=== PATIENT | male | born 1965 | race Caucasian/White ===

== ENCOUNTER 2021-04-08 12:58 | Emergency (ER) | payer SELFPAY ==
--- NOTE | ~2021-04-08 | CT_ITS ---
EXAMINATION: CT HEAD WITHOUT CONTRAST CT FACIAL BONES WITHOUT CONTRAST CT CERVICAL SPINE WITHOUT CONTRAST CLINICAL INFORMATION: Seizures. Trauma to the head and face. COMPARISON: CT head 01/09/2016. CT orbits 07/12/2010. TECHNIQUE: Multidetector volumetric CT imaging of the head, facial bones and cervical spine was acquired without intravenous contrast administration. Postprocessing is performed at a dedicated workstation. Multiplanar reformatted images are submitted. This CT scan was performed using dose optimization techniques as appropriate to a performed exam including the following: *Automated exposure control *Adjustment of mA and/or kV according to patient size (this includes techniques or standardized protocols for targeted exams were dose is matched to indication/reason for exam; i.e. extremities or head) *Use of iterative reconstruction technique DLP: 1352 mGy-cm FINDINGS: CT HEAD AND FACIAL BONES: There is mild global volume loss with proportionate dilatation of the ventricles and cortical sulci. There is no evidence of acute intracranial hemorrhage, midline shift or mass effect. Cullen to white matter differentiation is well preserved. No abnormal extra-axial fluid collection. No abnormal parenchymal attenuation is noted. Osseous calvarium is intact. No evidence of significant calvarial soft tissue swelling or hematoma. Mild soft tissue swelling is noted over the anterior frontal region. Temporomandibular joint alignments are maintained. Minimally displaced fracture of the right nasal bone anteriorly. Minimal mucosal thickening in the ethmoid air cells. Remainder of the paranasal sinuses are clear. Mastoid air cells and middle ear cavities are well aerated. Cerumen is noted in the right external auditory canal. The zygomatic arches are intact. Lamina papyracea are intact. Orbital rims are intact. The globes are unremarkable. Retrobulbar fat is clear bilaterally. CT CERVICAL SPINE: The vertebral body heights are maintained. Atlantoaxial and atlantooccipital alignments are maintained. Multilevel bilateral facet arthropathy is seen, left greater than right. There is moderate narrowing of the C5-C6 and C6-C7 disc spaces. Mild narrowing of the C3-C4 and C4-C5 disc spaces. Marginal small endplate osteophytes are noted from C4 to C7. The posterior elements are intact and in normal alignment. [id number] bilateral neural foraminal narrowing is noted at C5-C6. Minimal anterior subluxation of C4 over C5 is likely degenerative. No evidence of prevertebral soft tissue swelling. Thyroid gland and lung apices are unremarkable. CT/CT cervical spine wo con IMPRESSION: 1. No evidence of acute intracranial abnormality. 2. Minimally displaced right nasal bone fracture. No evidence of fracture of the osseous calvarium. 3. No evidence of acute fracture or traumatic subluxation in the cervical spine. Cervical spondylosis.
[2021-04-08 13:08] VITALS: BP 152/98; BP 171/93; PULSE 111; PULSE 84; RESP 22; TEMP 37.1; O2SAT 95; O2SAT 96; BMI 22.4
--- NOTE | 2021-04-08 13:32 | ED_ITS ---
HPI - Seizure General Chief Complaint: Seizure Stated Complaint: seizure Time Seen by Provider: 04/08/21 12:59 Source: patient Mode of arrival: EMS Limitations: no limitations History of Present Illness HPI Narrative: 55-year-old male past medical history significant for alcohol abuse disorder w/ previous alcohol withdraw seizures brought in by ambulance for an alcohol withdrawal seizure just prior to arrival. According to EMS when they arrived he was postictal, he was unable to answer questions, and it appeared as though he fell and hit his head. Patient states that he has been trying to stop drinking alcohol, he usually drinks 4 large beers each night. He states his last drink was 2 days ago. He states that since his last drink he has been feeling shaky, and on well. He states he has had alcohol withdrawal seizures in the past, but they have never required hospital admission. At this time he also complains of a mild headache, and nausea. He states that this seizure was likely witnessed by his roommates, but he has not spoken to them, and he does not know how long he was seizing for. Patient denies dizziness, chest pain, shortness of breath, changes in vision, fevers, chills, vomiting, abdominal pain, diarrhea, bladder/bowel incontinence, neck pain. MD complaint: seizure Onset (ago): minute(s) (45) Description of Episode: loss of consciousness Witnessed: Yes - by Bystander (roomate) Trauma: Yes Seizure History: Yes Place: Home Possible Precipitating Event: alcohol withdrawal Associated symptoms: malaise and other (headache, nausea) Treatments prior to arrival: none Related Data Previous Rx's Medication Instructions Recorded chlordiazepoxide HCl 25 mg capsule 25 mg PO Q6H PRN #10 cap 04/08/21 Allergies Allergy/AdvReac Type Severity Reaction Status Date / Time Sulfa (Sulfonamide Allergy Unknown NOT Unverified 02/24/20 14:50 Antibiotics) APPLICABLE [SULFA (SULFONAMIDE ANTIBIOTICS)] Review of Systems Review of Systems: Yes all other systems are reviewed and are negative Constitutional: Constitutional: Reports no additional constitutional complaints, Denies body ache(s), Denies chills, Denies fever(s), Reports headache(s) and Denies weakness Eyes: Eyes: Reports no additional eye complaints and Denies change in vision ENT: Reports system reviewed and no additional complaints, except as documented, Denies dizziness, Reports headache(s), Denies nasal congestion, Denies nasal discharge and Denies neck pain Cardiovascular: Cardiovascular: Reports no additional cardiovascular complaints, Denies chest pain, Denies leg edema and Denies dyspnea Respiratory: Respiratory: Reports no additional respiratory complaints, Denies cough and Denies dyspnea Gastrointestinal: Gastrointestinal: Reports no additional gastrointestinal complaints, Denies abdominal pain, Denies diarrhea, Reports nausea and Denies vomiting Genitourinary: Genitourinary: Denies urinary incontinence Musculoskeletal: Musculoskeletal: Reports no additional musculoskeletal complaints, Denies back pain, Denies arthralgias, Denies joint swelling, Denies neck pain, Denies numbness and Denies tingling Integumentary/Breasts: Skin/Breast: Reports system reviewed and no additional complaints, except as docu, Reports bleeding lesions and Denies rash Neurologic: Reports system reviewed and no additional complaints, except as documented, Denies Abnormal speech present, Denies dizziness, Reports headache(s), Denies numbness, Denies tingling and Denies weakness PMF Past Medical History Attestation statement: The following information was validated with the patient. Source: old records reviewed and nursing notes reviewed Medical History Abuse, drug or alcohol Social History Social History Alcohol intake: former Patient Tobacco Use Status: Never used Tobacco Use of substances other than those prescribed or required for medical reasons: No Advance Directives: No Advance Directives Information Provided: No Physical Exam Vital Signs: Vital Signs: Last Vital Signs Temp 99.4 F 04/08/21 16:39 Pulse 77 04/08/21 16:39 Resp 18 04/08/21 16:39 BP 182/101 H 04/08/21 16:39 Pulse Ox 93 04/08/21 16:39 Body Mass Index 22.4 Const: General: cooperative, healthy appearing, comfortable and no acute distress Orientation/consciousness: patient oriented x3 Limitations: no limitations HENMT: Head: Yes normal to inspection and Yes other (no step offs or deformities. ) Ears: hearing grossly normal bilaterally General nose exam: Normal external nose present Face and sinus: Yes normal facial exam Mouth: Normal oral and palatal mucosa present Throat: Yes posterior oropharynx normal Eyes: General: appearance normal, both eyes and all related structures Pupils: Equal, round and reactive pupils present Neck: Neck: Yes normal visual inspection Chest: Chest palpation & inspection: normal inspection of the chest Resp: Effort & Inspection: normal respiratory effort Auscultation: clear to auscultation bilaterally Cardio: Rate: regular rate Rhythm: regular rhythm Peripheral pulses: Peripheral pulses 2+ throughout GI: Inspection: Yes normal to inspection Palpation (GI): Soft to palpation and nontender Auscultation: normal bowel sounds Back/Spine/Pelvis: Thoracic/Lumbar Spine: thoracic and lumbar spine normal to inspection Skin: Other: There are abrasions noted to the left side of the forehead/baptism region. There is also small bleeding laceration on the nose <1 cm. There is also a small laceration and is bleeding overlying the left maxillary bone measuring less than 1 cm. General skin exam: rashes and/or lesions noted Neuro: Other: A resting tremor is noted to bilateral upper extremities. Tongue fasciculations are noted. No asterixis noted. General: patient oriented x3, no focal motor deficits and normal sensation to monofilament Cranial nerves: Yes Equal, round and reactive pupils present Cognition (Neuro): normal cognition Speech: No Abnormal speech present Gait exam (Neuro): Normal gait present Motor exam (neuro): 5/5 motor strength present throughout Sensory Exam: Normal double simultaneous stimulation for sensation Extrem: General: Yes normal to inspection Course Reevaluation(s) Reevaluation #1: Labs show no acute infection, elevated transaminases in a 2-1 pattern likely secondary to alcohol use disorder, Lactic acid 3.3, second liter of fluids will be given. CK 72. Utox negative, Ethanol <10. CT shows no evidence of intracranial hemorrhage, minimally displaced right nasal bone fracture. No acute fracture or subluxation in the cervical spine. Time: 14:19 Reevaluation #2: Spoke to the patient a bowel attending detox, however he states he would like to take care of this on his own once he gets discharged, he states he does not have money or insurance right now for a detox program. Patient ates that he has been sober in the past, he used AA. He plans to start going back to AA after hospital discharge, he states he no longer wants to drink, he states he knows plenty of people within the program, so he feels like he has plenty of support at home. At this time his resting tremors have improved after the administration of Ativan IV. Patient is no longer nauseous at this time. He does not report a headache at this time Time: 14:32 Reevaluation #3: Another dose of IV Ativan has been ordered. Patient has been e ducated that if he leaves the hospital, without detox/ admisssion for alcohol withdraw he is leaving against medical advice. He states he has a safe ride home, he states a friend will come and get him and that he has no money or insurance right now and dosent want to be admitted. Repeat lactic acid is pending at this time, if lactic acid has improved after 2 L of fluids, he will sign out AMA. He states he will follow up with AA. He states he has used Librium in the past, and is been very helpful. Librium has been sent to his pharmacy. He has been educated that he should not drink while taking Librium, this can cause respiratory depression, and in turn car as aspiration pneumonia. He understands this, and states he is not planning to drink. He will sign out AMA, has been given return percautions. Time: 16:47 Additional Reevaluation(s): Repeat lactic 1.3 improved after 2L of NS. Patient is calling a friend for a ride home. Refusing to be admitted. He is alert and oriented x 3. Will sign AMA paper work MDM - Seizure MDM Narrative Medical decision making narrative: [id number] 55-year-old male with past medical history of alcohol use disorder with previous alcohol withdrawal seizures presents to the emergency department via EMS for an unwitnessed seizure, the patient likely fell and hit his head. Patient states that usually drinks 4 large beers a night, and has been drinking for years. He states recently he has been trying to stop drinking his last drink was 2 days ago. He states for the past 2 days he has been feeling unwell, and shaky. His previous withdraws have never required hospitalizations. At this time patient is unsure if he would like detox. CIWA score of 8 Upon physical examination patient is resting comfortably on the stretcher, he is in no distress. Able to answer questions appropriately alert and oriented x3. Lungs are clear to auscultation, S1-S2 appreciated free of murmurs. No focal neuro deficits noted. 5/5 strength upper and lower extremities. There is a resting tremor to bilateral upper extremities. No asterixis noted. Tongue fasciculations are noted. There are evident abrasions to the left side of the forehead, and baptism area. There is a small laceration measuring less than 1 cm overlying the left maxillary bone. There is also a laceration to the left side of the nose, measuring less than 1 cm p.o. readmit bleeding from both of these laceration is well controlled. Abdomen is soft nontender nondistended. Pupils are equal round reactive to light. No step-offs or deformities are noted to skull Plan at this time is to obtain basic labs, drug screen, EtOH, lactic, CK, magnesium, liver, salicylates, urine, CT of the head/brain, facial bones, and c ervical spine. Seizure precautions are in place at this time. Patient will be given Ativan 1 mg IV, Zofran and will be hydrated with fluids. Will continue to closely monitor this patient. Medical Records Attestation: I reviewed the patient's medical records. Lab Data Attestation: I reviewed the patient's lab results. Result diagrams: 04/08/21 13:49 04/08/21 13:49 Labs: Lab Results 04/08/21 04/08/21 04/08/21 Range/Units 13:49 13:49 13:49 WBC 7.8 (4.8-10.8) X10*3/uL RBC 4.42 L (4.60-5.80) X10*6/uL Hgb 15.7 (14.0-18.0) g/dl Hct 45.1 (42.0-52.0) % MCV 102.0 H (80.0-98.0) fL MCH 35.5 H (27.0-33.0) pg MCHC 34.8 (31.0-36.0) g/dl RDW 13.1 (11.0-16.0) % Plt Count 142 L (160-400) X10*3/uL MPV 10.9 (9.4-12.4) fL Immature Gran % (Auto) 0.8 H (0.0-0.4) % Neut % (Auto) 81.6 H (45-73) % Lymph % (Auto) 8.2 L (20-40) % [place] % (Auto) 8.5 (2-11) % Eos % (Auto) 0.3 (0-4) % Baso % (Auto) 0.6 (0-2) % Lymph # (Auto) 0.6 L (1.2-4.9) X10*3/uL [place] # (Auto) 0.7 (0.1-1.2) X10*3/uL Eos # (Auto) 0.0 (0.0-0.4) X10*3/uL Baso # (Auto) 0.1 (0.0-0.2) X10*3/uL Abs Immat Gran (auto) 0.06 H (0.00-0.03) X10*3/uL Absolute Neuts (auto) 6.40 (2.0-8.3) x10*3/uL Absolute Nucleated RBC 0.020 H (0.0-0.012) X10*3/uL Nucleated RBC % (auto) 0.3 H (0.0-0.2) /100WBC Sodium 138 (135-145) mmol/L Potassium 3.9 (3.3-5.1) mmol/L Chloride 99 (96-108) mmol/L Carbon Dioxide 25 (22-29) mmol/L Anion Gap 18 (12-20) BUN 7 L (9-16) mg/dL Creatinine 0.76 (0.5-1.4) mg/dL Estim Creat Clear Calc 95.1 Estimated GFR > 60 Random Glucose 177 H (60-115) mg/dL Lactic Acid (0.5-2.0) mmol/L Lactic Acid Fup @ 2Hr (0.5-2.0) mmol/L Calcium 8.8 (8.4-10.2) mg/dL Magnesium 2.2 (1.6-2.6) mg/dL Total Bilirubin 0.7 (0.0-1.0) mg/dL Direct Bilirubin 0.3 (0.0-0.5) mg/dL AST 129 H (5-37) U/L ALT 79 H (0-40) U/L Alkaline Phosphatase 94 (39-117) U/L Total Creatine Kinase 72 (38-174) U/L Total Protein 7.0 (6.5-8.0) g/dL Albumin 3.9 (3.5-5.0) g/dL Salicylates < 5.0 L (15-30) mg/dL Ethyl Alcohol < 10 mg/dL 04/08/21 04/08/21 Range/Units 14:19 16:48 WBC (4.8-10.8) X10*3/uL RBC (4.60-5.80) X10*6/uL Hgb (14.0-18.0) g/dl Hct (42.0-52.0) % MCV (80.0-98.0) fL MCH (27.0-33.0) pg MCHC (31.0-36.0) g/dl RDW (11.0-16.0) % Plt Count (160-400) X10*3/uL MPV (9.4-12.4) fL Immature Gran % (Auto) (0.0-0.4) % Neut % (Auto) (45-73) % Lymph % (Auto) (20-40) % [place] % (Auto) (2-11) % Eos % (Auto) (0-4) % Baso % (Auto) (0-2) % Lymph # (Auto) (1.2-4.9) X10*3/uL [place] # (Auto) (0.1-1.2) X10*3/uL Eos # (Auto) (0.0-0.4) X10*3/uL Baso # (Auto) (0.0-0.2) X10*3/uL Abs Immat Gran (auto) (0.00-0.03) X10*3/uL Absolute Neuts (auto) (2.0-8.3) x10*3/uL Absolute Nucleated RBC (0.0-0.012) X10*3/uL Nucleated RBC % (auto) (0.0-0.2) /100WBC Sodium (135-145) mmol/L Potassium (3.3-5.1) mmol/L Chloride (96-108) mmol/L Carbon Dioxide (22-29) mmol/L Anion Gap (12-20) BUN (9-16) mg/dL Creatinine (0.5-1.4) mg/dL Estim Creat Clear Calc Estimated GFR Random Glucose (60-115) mg/dL Lactic Acid 3.3 H* (0.5-2.0) mmol/L Lactic Acid Fup @ 2Hr 1.3 (0.5-2.0) mmol/L Calcium (8.4-10.2) mg/dL Magnesium (1.6-2.6) mg/dL Total Bilirubin (0.0-1.0) mg/dL Direct Bilirubin (0.0-0.5) mg/dL AST (5-37) U/L ALT (0-40) U/L Alkaline Phosphatase (39-117) U/L Total Creatine Kinase (38-174) U/L Total Protein (6.5-8.0) g/dL Albumin (3.5-5.0) g/dL Salicylates (15-30) mg/dL Ethyl Alcohol mg/dL Imaging Data CT of cervical spine, face, head: Attestation: I personally reviewed and interpreted this imaging study as follows: Radiologist's impression: CT/CT cervical spine wo con IMPRESSION: 1. No evidence of acute intracranial abnormality. 2. Minimally displaced right nasal bone fracture. No evidence of fracture of the osseous calvarium. 3. No evidence of acute fracture or traumatic subluxation in the cervical spine. Cervical spondylosis. Discharge Plan Discharge Clinical Impression: Alcohol withdrawal seizure Qualifiers: Complication of substance-induced condition: uncomplicated Qualified Code(s): F10.230 - Alcohol dependence with withdrawal, uncomplicated Closed fracture nasal bone Qualifiers: Encounter type: initial encounter Qualified Code(s): S02.2XXA - Fracture of nasal bones, initial encounter for closed fracture Patient Disposition: Left Against Medical Advice Instructions: Nasal Fracture (ED), Abuse of Alcohol (ED), Alcohol Withdrawal (ED), Against Medical Advice (ED), Alcohol Use Disorder (ED) Additional Instructions: Today you decided to leave against medical advice Librium has been sent to your pharmacy. Do not drink on this medication it can be very dangerous and cause respiratory depression and possible aspiration pneumonia Follow-up with your primary care provider As discussed it is a good idea to attend AA meetings Return to the emergency department with new or worsening symptoms Prescriptions: New chlordiazepoxide HCl 25 mg capsule 25 mg PO Q6H PRN (Reason: alcohol withdrawal) Qty: 10 RF: 0 Referrals: Physician,Unknown J [Primary Care Provider] - 2 days Stand Alone Forms: Against Medical Advice Interventions: ED Discharge Assessment Last Done: 04/08/21 17:48
[2021-04-08] MEDS: 0.9 % Sodium Chloride 1,000 ML 999 ML IV ×2 (13:42→16:15)
[2021-04-08] MEDS: LORazepam 2 MG/ML VIAL 1 MG IVPUSH ×2 (13:42→16:21)
[2021-04-08] MEDS: ondansetron HCL 4 MG/2 ML VIAL IVPUSH (13:43)
[2021-04-08 13:58] LABS: Basophils Absolute Auto 0.1 X10*3/uL (0.0-0.2); Basophils Percent Auto 0.6 % (0-2); Eosinophils Percent Auto 0.3 % (0-4); Hematocrit 45.1 % (42.0-52.0); Hemoglobin 15.7 g/dl (14.0-18.0); Imm Gran Abs Auto 0.06 X10*3/uL (0.00-0.03); Imm Gran Pct Auto 0.8 % (0.0-0.4); Lymphocytes Absolute Auto 0.6 X10*3/uL (1.2-4.9); Lymphocytes Percent Auto 8.2 % (20-40); MANUAL DIFF FLAG NO; Mean Corpuscular HGB Conc 34.8 g/dl (31.0-36.0); Mean Corpuscular Hemoglobin 35.5 pg (27.0-33.0); Mean Platelet Volume 10.9 fL (9.4-12.4); Monocytes Absolute Auto 0.7 X10*3/uL (0.1-1.2); Monocytes Percent Auto 8.5 % (2-11); NRBC Pct Auto 0.3 /100WBC (0.0-0.2); Neutrophils Percent Auto 81.6 % (45-73); Platelet Count 142 X10*3/uL (160-400); Red Blood Count 4.42 X10*6/uL (4.60-5.80); Red Cell Distribution Width 13.1 % (11.0-16.0); White Blood Count 7.8 X10*3/uL (4.8-10.8)
[2021-04-08 14:15] LABS: Ethanol < 10 mg/dL
[2021-04-08 14:18] LABS: Alanine Aminotransferase 79 U/L (0-40); Albumin Level 3.9 g/dL (3.5-5.0); Alkaline Phosphatase 94 U/L (39-117); Anion Gap 18 (12-20); Aspartate Amino Transferase 129 U/L (5-37); Bilirubin Direct 0.3 mg/dL (0.0-0.5); Bilirubin Total 0.7 mg/dL (0.0-1.0); Blood Urea Nitrogen 7 mg/dL (9-16); Calcium 8.8 mg/dL (8.4-10.2); Carbon Dioxide 25 mmol/L (22-29); Chloride 99 mmol/L (96-108); Creatinine Clr Calc Pharmacy 95.1; Estimated Glomerular Filt Rate > 60; Glucose Random 177 mg/dL (60-115); Magnesium 2.2 mg/dL (1.6-2.6); Potassium 3.9 mmol/L (3.3-5.1); Sodium 138 mmol/L (135-145)
[2021-04-08 14:19] VITALS: BP 166/79; PULSE 92; RESP 18; TEMP 37.1; O2SAT 94
[2021-04-08 14:25] LABS: Salicylate < 5.0 mg/dL (15-30)
[2021-04-08 14:47] LABS: Lactic Acid 3.3 mmol/L (0.5-2.0)
[2021-04-08 16:21] LABS: Reflex Lactate? Lactic Acid Added
[2021-04-08 16:39] VITALS: BP 182/101; PULSE 77; RESP 18; TEMP 37.4; O2SAT 93
[2021-04-08 17:03] LABS: ~Lactic Acid-LAB USE ONLY 1.3 mmol/L (0.5-2.0)
== END 2021-04-08 17:49 | disposition left against medical advice (07) ==
PROVIDERS: Nurse Practitioner Family; Emergency Provider Emergency Medicine
DX: F10.230 Alcohol dependence with withdrawal, uncomplicated (principal); Y90.0 Blood alcohol level of less than 20 mg/100 ml; S02.2XXA Fracture of nasal bones, initial encounter for closed fracture; W18.30XA Fall on same level, unspecified, initial encounter; Y93.9 Activity, unspecified; Y92.9 Unspecified place or not applicable; Y99.9 Unspecified external cause status
CPT/HCPCS: 36415; 70450; 70486; 72125; 80048; 80076; 80179; 82077; 82550; 83605; 83735; 85025; 96361; 96374; 96375; 96376; 99285; J2060; J2405

== ENCOUNTER 2021-05-22 08:17 | Emergency (ER) | payer OTHER, SELFPAY ==
--- NOTE | ~2021-05-22 | XR_ITS ---
EXAMINATION: XR CHEST CLINICAL INFORMATION: Cough COMPARISON: None TECHNIQUE: Upright PA view of the chest was obtained. FINDINGS: Patient slightly rotated. The lungs are clear. There is no pneumothorax, airspace opacities, or effusion. The costophrenic sulci are clear. The heart is normal in size. The vascularity is normal. The hilar and mediastinal contours are normal. There are mild degenerative changes thoracic spine. Old healed fracture noted right posterior lateral 7th rib. XR/XR chest 1V IMPRESSION: Lungs clear.
[2021-05-22 08:38] VITALS: BP 152/96; PULSE 89; RESP 18; TEMP 36.8; O2SAT 97; BMI 22.4
--- NOTE | 2021-05-22 08:59 | ED.URI ---
HPI - URI/Sore Throat General Chief Complaint: Upper Respiratory Symptoms Stated Complaint: body aches Time Seen by Provider: 05/22/21 08:54 Source: patient Mode of arrival: ambulatory Limitations: no limitations History of Present Illness HPI Narrative: 55 y/o male presenting to the ER with diffuse body aches and a dry cough that started yesterday. He states he woke up yesterday with all of his joints and muscles hurting. He has a dry cough but no shortness of breath or chest pain. He is not vaccinated for COVID-19. He denies any fevers or chills. He is tired and his main complaint is his body aches. He has no known sick contacts or known COVID-19 exposures. He denies any rashes. MD elicited complaint: cough and other (body aches) Onset (ago): day(s) (1) Consistency: constant Severity: moderate Able to tolerate fluids by mouth: Yes Exacerbating factors: exertion Relieving factors: rest Associated symptoms: myalgias, headache and cough Treatments prior to arrival: none Related Data Previous Rx's Medication Instructions Recorded chlordiazepoxide HCl 25 mg capsule 25 mg PO Q6H PRN #10 cap 04/08/21 Allergies Allergy/AdvReac Type Severity Reaction Status Date / Time Sulfa (Sulfonamide Allergy Unknown NOT Unverified 02/24/20 14:50 Antibiotics) APPLICABLE [SULFA (SULFONAMIDE ANTIBIOTICS)] Review of Systems Review of Systems: Constitutional: No Fever, No Chills ENT/Mouth: No sore throat, No Rhinorrhea, No Swallowing Difficulty Cardiovascular: No Chest Pain, No SOB, No Orthopnea, No Edema Respiratory: + Cough, No Sputum, No Wheezing, No dyspnea Gastrointestinal: No Nausea, No Vomiting, No Diarrhea, No abdominal Pain Genitourinary: No Dysuria, No Urinary Frequency, No Hematuria Musculoskeletal: + joint pain, + Myalgias Skin: No Skin Lesions, No rash Neuro: No Weakness, No Numbness, No Dizziness, No Headache Psych: No Anxiety/Panic, No Depression Heme/Lymph: No Bruising, No Lymphadenopathy PMFSH Past Medical History Medical History Abuse, drug or alcohol Social History Social History Alcohol intake: former Patient Tobacco Use Status: Never used Tobacco Advance Directives: No Advance Directives Information Provided: No Physical Exam Vital Signs: Vital Signs: Last Vital Signs Temp 98.2 F 05/22/21 08:38 Pulse 89 05/22/21 08:38 Resp 18 05/22/21 08:38 BP 152/96 H 05/22/21 08:38 Pulse Ox 97 05/22/21 08:38 BMI result Body Mass Index 22.4 Appearance: Alert. Oriented X3. No acute distress. Eyes: Pupils equal, round and reactive to light. ENT: Pharynx normal. Neck: Normal inspection. Neck supple. CVS: Normal heart rate and rhythm. Pulses normal. Respiratory: No respiratory distress. Breath sounds normal. Abdomen: Soft and nontender. +BS x4 Skin: Skin warm and dry. Normal skin color. Normal skin turgor. No rashes. Extremities: No lower extremity edema. No calf tenderness Neuro: Oriented X 3. Grossly normal, nonfocal Course Course Course Narrative: 55 y/o male presenting to the ER with body aches and a dry cough that started yesterday. Afebrile with SpO2 97% on room air. Exam is benign. Will get Viral PCR and CXR. Reevaluation(s) Reevaluation #1: Viral PCR is negative and chest x-ray is clear. His symptoms most likely viral in etiology. He has appointment with primary care doctor next week. He is advised to take Tylenol Motrin as needed for his symptoms. He is stable for discharge home with supportive care and outpatient follow-up. MDM - URI/Sore Throat Lab Data Labs: Lab Results 05/22/21 Range/Units 08:57 Influenza Type A (PCR) NEGATIVE (Negative) Influenza Type B (PCR) NEGATIVE (Negative) RSV RNA Qual (PCR) NEGATIVE (Negative) SARS-CoV-2 RNA (RT-PCR) NEGATIVE (Negative) Critical Care Time Critical Care Time Critical Care Time: No Discharge Plan Discharge Clinical Impression: Viral infection Patient Disposition: Home, Self-Care Instructions: Viral Syndrome (ED) Additional Instructions: You tested negative for COVID-19, influenza and RSV. Your chest x-ray was normal. Recommend taking Tylenol alternating with Motrin throughout the day to help with your body aches. Rest and drink plenty of fluids. If your symptoms persist recommend getting retested for COVID-19 given that you are vaccinated. Recommend vaccination for COVID-19 once her feeling better. Follow-up with your doctor as scheduled on the . If you develop new or worsening symptoms call 911 or come back to the ER for further evaluation. Prescriptions: No Action chlordiazepoxide HCl 25 mg capsule 25 mg PO Q6H PRN (Reason: alcohol withdrawal) Qty: 10 RF: 0 Referrals: Irena Jensen MD [Primary Care Provider] - 05/28/21 Stand Alone Forms: Work/School Release
[2021-05-22 10:24] LABS: Influenza A PCR NEGATIVE (Negative); Influenza B PCR NEGATIVE (Negative); Resp Syncy Virus RNA Qual PCR NEGATIVE (Negative); SARS COV2 PCR INHOUSE NEGATIVE (Negative)
== END 2021-05-22 10:52 | disposition home or self-care (01) ==
PROVIDERS: Physician Assistant; Emergency Provider Emergency Medicine; PCP Internal Medicine
DX: B34.9 Viral infection, unspecified (principal); Z20.822 Contact with and (suspected) exposure to COVID-19; M79.10 Myalgia, unspecified site
CPT/HCPCS: 0241U; 36415; 71045; 99283

== ENCOUNTER 2021-07-10 19:50 | Emergency (ER) | payer OTHER, SELFPAY ==
--- NOTE | ~2021-07-10 | CT_ITS ---
EXAMINATION: CT BRAIN AND CT CERVICAL SPINE WITHOUT CONTRAST. CLINICAL INFORMATION: Status post fall/seizure. COMPARISON: CT brain and CT cervical spine 04/08/2021. TECHNIQUE: 5 mm thin axial and reformatted 2 mm thin sagittal and coronal images of brain were obtained. Subsequently axial 3 mm thin and reformatted 2 mm thin sagittal coronal images of cervical spine were obtained. DLP 1425. FINDINGS: BRAIN: There is no acute intra-axial, extra-axial bleed, masses or midline shift. There is no acute infarction evolution. The lateral ventricles are symmetrical in size and configuration without enlargement. There is no edema. The lateral ventricles are enlarged and so other cortical sulci. Bone windows reveal no calvarial abnormality. There is no scalp soft tissue abnormality bilateral paranasal sinuses and mastoid air cells are well-aerated. CERVICAL SPINE: There is mild reversal of cervical lordosis. There is loss of C3-C4, C4-C5, C5-C6, C6-C7 and C7-T1 disc levels with moderate ventral and posterior spondylosis at the lower disc levels. The craniovertebral junction and the C1-C2 alignment is normal. There is no visible acute fracture, dislocation or subluxation seen. There is moderate left C2-C3, C3-C4 and C4-C5 facet joint arthropathy the prevertebral and the paravertebral soft tissues are normal. The airway is widely patent. The lung apices are clear. CT/CT cervical spine wo con IMPRESSION: No acute intracranial process seen. No change from CT brain 04/08/2021. Reversal of cervical lordosis with degenerative disc changes and spondylosis. Similar findings were seen on the previous exam 04/08/2021.
--- NOTE | ~2021-07-10 | CT_ITS ---
EXAMINATION: CT BRAIN AND CT CERVICAL SPINE WITHOUT CONTRAST. CLINICAL INFORMATION: Status post fall/seizure. COMPARISON: CT brain and CT cervical spine 04/08/2021. TECHNIQUE: 5 mm thin axial and reformatted 2 mm thin sagittal and coronal images of brain were obtained. Subsequently axial 3 mm thin and reformatted 2 mm thin sagittal coronal images of cervical spine were obtained. DLP 1425. FINDINGS: BRAIN: There is no acute intra-axial, extra-axial bleed, masses or midline shift. There is no acute infarction evolution. The lateral ventricles are symmetrical in size and configuration without enlargement. There is no edema. The lateral ventricles are enlarged and so other cortical sulci. Bone windows reveal no calvarial abnormality. There is no scalp soft tissue abnormality bilateral paranasal sinuses and mastoid air cells are well-aerated. CERVICAL SPINE: There is mild reversal of cervical lordosis. There is loss of C3-C4, C4-C5, C5-C6, C6-C7 and C7-T1 disc levels with moderate ventral and posterior spondylosis at the lower disc levels. The craniovertebral junction and the C1-C2 alignment is normal. There is no visible acute fracture, dislocation or subluxation seen. There is moderate left C2-C3, C3-C4 and C4-C5 facet joint arthropathy the prevertebral and the paravertebral soft tissues are normal. The airway is widely patent. The lung apices are clear. CT/CT head/brain wo con IMPRESSION: No acute intracranial process seen. No change from CT brain 04/08/2021. Reversal of cervical lordosis with degenerative disc changes and spondylosis. Similar findings were seen on the previous exam 04/08/2021.
[2021-07-10 19:58] VITALS: BP 136/90; BP 149/103; PULSE 110; PULSE 126; RESP 14; TEMP 36.9; O2SAT 96; O2SAT 97; BMI 22.9
--- NOTE | 2021-07-10 20:01 | ECG_ITS ---
Test Reason : Syncope Blood Pressure : / mmHG Vent. Rate : 095 BPM Atrial Rate : 095 BPM P-R Int : 132 ms QRS Dur : 086 ms QT Int : 342 ms P-R-T Axes : 070 052 054 degrees QTc Int : 429 ms Normal sinus rhythm Normal ECG When compared with ECG of 05-APR-2016 15:32, No significant change was found Referred By: Gurwinder Yoon Electronically Signed By:HOLLY HERNANDEZ
[2021-07-10] MEDS: LORazepam 2 MG/ML VIAL 1 MG IVPUSH (20:11)
--- NOTE | 2021-07-10 20:22 | ED_ITS ---
HPI - Seizure General Chief Complaint: Seizure Stated Complaint: fall, EtOH withdrawl Time Seen by Provider: 07/10/21 20:00 Source: patient and EMS Mode of arrival: EMS Limitations: no limitations History of Present Illness HPI Narrative: Preop history of alcohol abuse stop drinking 3 days ago which has done in the past today while in the kitchen sitting suddenly had a seizure witnessed by his friend, seizure lasted for 3- 4 minutes patient does not remember having seizure next thing he found himself was on the ground and EMS around him and passed postictal with superficial abrasion to forehead and right hand no other injuries patient had similar episodes of seizures in the past has not seen any neurologist is not on any antiepileptic Seizure History: Yes Related Data Previous Rx's Medication Instructions Recorded chlordiazepoxide HCl 25 mg capsule 25 mg PO Q6H PRN #10 cap 04/08/21 chlordiazepoxide HCl 25 mg capsule 25 mg PO Q6H PRN #14 cap 07/10/21 Allergies Allergy/AdvReac Type Severity Reaction Status Date / Time Sulfa (Sulfonamide Allergy Unknown NOT Unverified 02/24/20 14:50 Antibiotics) APPLICABLE [SULFA (SULFONAMIDE ANTIBIOTICS)] Review of Systems Verdana 4l Review of Systems: Yes all other systems are reviewed and Verdana 4d are negative [facility] Past Medical History Medical History Abuse, drug or alcohol Social History Social History Alcohol intake: former Patient Tobacco Use Status: Never used Tobacco Advance Directives: No Advance Directives Information Provided: No Physical Exam Verdana 4l Vital Signs: Verdana 4d Verdana 4d Vital Signs: Verdana 4d Verdana 4Bd Last Vital Signs Verdana 4d [place] 4d [place] New 4d Temp 98.5 F 07/10/21 19:58 [place] 4d Pulse 110 H 07/10/21 19:58 [place] 4d Resp 14 07/10/21 19:58 BP 136/90 H 07/10/21 19:58 Pulse Ox 96 07/10/21 19:58 BMI result Body Mass Index 22.9 Appearance: Alert. Oriented X3. No acute distress. Eyes: PERRLA, No Nystagmus HEENT: Pharynx normal. Oral Mucosa moist superficial abrasion left forehead no tongue bite no dental injury Neck: Normal inspection. Neck supple. No midline tenderness good range of movement CVS: Normal heart rate and rhythm. Pulses normal. Respiratory: No respiratory distress. Equal air entry bilateral, no wheezing/rales/rhonchi Abdomen: Soft and nontender. Bowel sounds are present, no mass palpable, Skin: Skin warm and dry. Normal skin color. Normal skin turgor. Extremities: No lower extremity edema. No calf tenderness superficial abrasion right dorsum of the hand Neuro: Oriented X 3. No motor deficit. No sensory deficit.No cerebellar signs , cranial nerves II-XII intact MDM - Seizure MDM Narrative Medical decision making narrative: Patient with alcohol withdrawal seizures with similar history of seizures in the past workup is negative for any metabolically etiology. Will discharge patient home and Librium advised to follow with neurologist/detox Lab Data Attestation: I reviewed the patient's lab results. Result diagrams: 07/10/21 20:59 07/10/21 20:59 Labs: Lab Results 07/10/21 07/10/21 07/10/21 Range/Units 20:59 20:59 20:59 WBC 7.3 (4.8-10.8) X10*3/uL RBC 4.25 L (4.60-5.80) X10*6/uL Hgb 14.3 (14.0-18.0) g/dl Hct 41.3 L (42.0-52.0) % MCV 97.2 (80.0-98.0) fL MCH 33.6 H (27.0-33.0) pg MCHC 34.6 (31.0-36.0) g/dl RDW 12.6 (11.0-16.0) % Plt Count 70 L D (160-400) X10*3/uL MPV 11.0 (9.4-12.4) fL Immature Gran % (Auto) 0.6 H (0.0-0.4) % Neut % (Auto) 76.9 H (45-73) % Lymph % (Auto) 11.7 L (20-40) % [place] % (Auto) 8.8 (2-11) % Eos % (Auto) 1.7 (0-4) % Baso % (Auto) 0.3 (0-2) % Lymph # (Auto) 0.9 L (1.2-4.9) X10*3/uL [place] # (Auto) 0.6 (0.1-1.2) X10*3/uL Eos # (Auto) 0.1 (0.0-0.4) X10*3/uL Baso # (Auto) 0.0 (0.0-0.2) X10*3/uL Abs Immat Gran (auto) 0.04 H (0.00-0.03) X10*3/uL Absolute Neuts (auto) 5.6 (2.0-8.3) x10*3/uL Absolute Nucleated RBC 0.000 (0.0-0.012) X10*3/uL Nucleated RBC % (auto) 0.0 (0.0-0.2) /100WBC Smear Tech's Comments VERIFIED PT 11.5 (9.9-13.0) SEC INR 1.0 (0.9-1.1) Sodium 131 L (135-145) mmol/L Potassium 3.8 (3.3-5.1) mmol/L Chloride 94 L (96-108) mmol/L Carbon Dioxide 28 (22-29) mmol/L Anion Gap 13 (12-20) BUN 8 L (9-16) mg/dL Creatinine 0.71 (0.5-1.4) mg/dL Estim Creat Clear Calc 102.2 Estimated GFR > 60 Random Glucose 102 D (60-115) mg/dL Calcium 9.2 (8.4-10.2) mg/dL Magnesium 2.3 (1.6-2.6) mg/dL Total Bilirubin 0.8 (0.0-1.0) mg/dL AST 64 H (5-37) U/L ALT 58 H (0-40) U/L Alkaline Phosphatase 69 D (39-117) U/L Troponin I High Sens (<3.5-35.0) ng/L Total Protein 7.1 (6.5-8.0) g/dL Albumin 4.1 (3.5-5.0) g/dL COVID-19 ([facility]) (Negative) COVID-19 Clin Com 07/10/21 07/10/21 Range/Units 20:59 20:59 WBC (4.8-10.8) X10*3/uL RBC (4.60-5.80) X10*6/uL Hgb (14.0-18.0) g/dl Hct (42.0-52.0) % MCV (80.0-98.0) fL MCH (27.0-33.0) pg MCHC (31.0-36.0) g/dl RDW (11.0-16.0) % Plt Count (160-400) X10*3/uL MPV (9.4-12.4) fL Immature Gran % (Auto) (0.0-0.4) % Neut % (Auto) (45-73) % Lymph % (Auto) (20-40) % [place] % (Auto) (2-11) % Eos % (Auto) (0-4) % Baso % (Auto) (0-2) % Lymph # (Auto) (1.2-4.9) X10*3/uL [place] # (Auto) (0.1-1.2) X10*3/uL Eos # (Auto) (0.0-0.4) X10*3/uL Baso # (Auto) (0.0-0.2) X10*3/uL Abs Immat Gran (auto) (0.00-0.03) X10*3/uL Absolute Neuts (auto) (2.0-8.3) x10*3/uL Absolute Nucleated RBC (0.0-0.012) X10*3/uL Nucleated RBC % (auto) (0.0-0.2) /100WBC Smear Tech's Comments PT (9.9-13.0) SEC INR (0.9-1.1) Sodium (135-145) mmol/L Potassium (3.3-5.1) mmol/L Chloride (96-108) mmol/L Carbon Dioxide (22-29) mmol/L Anion Gap (12-20) BUN (9-16) mg/dL Creatinine (0.5-1.4) mg/dL Estim Creat Clear Calc Estimated GFR Random Glucose (60-115) mg/dL Calcium (8.4-10.2) mg/dL Magnesium (1.6-2.6) mg/dL Total Bilirubin (0.0-1.0) mg/dL AST (5-37) U/L ALT (0-40) U/L Alkaline Phosphatase (39-117) U/L Troponin I High Sens 6.1 (<3.5-35.0) ng/L Total Protein (6.5-8.0) g/dL Albumin (3.5-5.0) g/dL COVID-19 ([facility]) Negative (Negative) COVID-19 Clin Com See Note Discharge Plan Discharge Clinical Impression: Alcohol withdrawal seizure Patient Disposition: Home, Self-Care Instructions: Alcohol Withdrawal (ED) Additional Instructions: Stop drinking alcohol and follow with detox Prescriptions: New chlordiazepoxide HCl 25 mg capsule 25 mg PO Q6H PRN (Reason: alcohol withdrawal) Qty: 14 0RF No Action chlordiazepoxide HCl 25 mg capsule 25 mg PO Q6H PRN (Reason: alcohol withdrawal) Qty: 10 0RF
[2021-07-10 21:06] LABS: PLT CLUMP 1; SCAN SMEAR FLAG 1
[2021-07-10 21:08] LABS: Basophils Percent Auto 0.3 % (0-2); Eosinophils Absolute Auto 0.1 X10*3/uL (0.0-0.4); Eosinophils Percent Auto 1.7 % (0-4); Hematocrit 41.3 % (42.0-52.0); Hemoglobin 14.3 g/dl (14.0-18.0); Imm Gran Abs Auto 0.04 X10*3/uL (0.00-0.03); Imm Gran Pct Auto 0.6 % (0.0-0.4); Lymphocytes Absolute Auto 0.9 X10*3/uL (1.2-4.9); Lymphocytes Percent Auto 11.7 % (20-40); MANUAL DIFF FLAG SCAN; Mean Corpuscular HGB Conc 34.6 g/dl (31.0-36.0); Mean Corpuscular Hemoglobin 33.6 pg (27.0-33.0); Mean Corpuscular Volume 97.2 fL (80.0-98.0); Monocytes Absolute Auto 0.6 X10*3/uL (0.1-1.2); Monocytes Percent Auto 8.8 % (2-11); Neutrophils Absolute Auto 5.6 x10*3/uL (2.0-8.3); Neutrophils Percent Auto 76.9 % (45-73); Red Blood Count 4.25 X10*6/uL (4.60-5.80); Red Cell Distribution Width 12.6 % (11.0-16.0)
[2021-07-10 21:11] LABS: Prothrombin Time 11.5 SEC (9.9-13.0)
[2021-07-10 21:20] LABS: COVID-19 Test Negative (Negative)
[2021-07-10 21:24] LABS: Alanine Aminotransferase 58 U/L (0-40); Albumin Level 4.1 g/dL (3.5-5.0); Alkaline Phosphatase 69 U/L (39-117); Anion Gap 13 (12-20); Aspartate Amino Transferase 64 U/L (5-37); Bilirubin Total 0.8 mg/dL (0.0-1.0); Blood Urea Nitrogen 8 mg/dL (9-16); Calcium 9.2 mg/dL (8.4-10.2); Carbon Dioxide 28 mmol/L (22-29); Chloride 94 mmol/L (96-108); Creatinine Clr Calc Pharmacy 102.2; Estimated Glomerular Filt Rate > 60; Glucose Random 102 mg/dL (60-115); Magnesium 2.3 mg/dL (1.6-2.6); Potassium 3.8 mmol/L (3.3-5.1); Sodium 131 mmol/L (135-145); Total Protein 7.1 g/dL (6.5-8.0)
[2021-07-10 21:25] LABS: Platelet Count 70 X10*3/uL (160-400); SLIDE REVIEW VERIFIED; White Blood Count 7.3 X10*3/uL (4.8-10.8)
[2021-07-10 21:29] LABS: Troponin-I High Sensitivity 6.1 ng/L (<3.5-35.0)
--- NOTE | 2021-07-10 21:58 | PC.NURSE ---
report received from prev rn
== END 2021-07-10 22:25 | disposition home or self-care (01) ==
PROVIDERS: Emergency Provider Internal Medicine; PCP Internal Medicine
DX: F10.131 Alcohol abuse with withdrawal delirium (principal); Y90.9 Presence of alcohol in blood, level not specified; S00.81XA Abrasion of other part of head, initial encounter; S60.511A Abrasion of right hand, initial encounter; W17.89XA Other fall from one level to another, initial encounter; Z20.822 Contact with and (suspected) exposure to COVID-19; Y93.89 Activity, other specified; Y92.030 Kitchen in apartment as the place of occurrence of the external cause; Y99.9 Unspecified external cause status
CPT/HCPCS: 36415; 70450; 72125; 80053; 83735; 84484; 85025; 85610; 87635; 93005; 96374; 99283; 99284; J2060

== ENCOUNTER 2021-08-18 12:23 | Inpatient (IN) | payer OTHER, SELFPAY ==
--- NOTE | ~2021-08-18 | CT_ITS ---
EXAMINATION: CT HEAD WITHOUT CONTRAST CLINICAL INFORMATION: Seizure COMPARISON: None TECHNIQUE: Contiguous axial imaging was performed from the skull base to vertex without intravenous administration of contrast. This CT examination was performed using dose optimization techniques as appropriate, variously including the following: *Automated exposure control *Adjustment of mA and/or kV according to patient size (this includes techniques or standardized protocols for targeted exams where dose is matched to indication/reason for exam; i.e. extremities or head) *Use of iterative reconstruction technique DLP: 692 mGy-cm FINDINGS: There is no evidence of acute intracranial hemorrhage or territorial infarction. No abnormal mass effect or midline shift is seen. Cullen to white matter differentiation is well preserved. No extra-axial fluid collections are identified. The ventricles are normal in size. There is no abnormal attenuation within the brain parenchyma. The osseous structures and soft tissues are normal. There is mild mucoperiosteal thickening left middle ethmoid sinus. Rest the paranasal sinuses are well-aerated and clear. CT/CT head/brain wo con IMPRESSION: No acute intracranial process seen.
--- NOTE | ~2021-08-18 | XR_ITS ---
EXAMINATION: PORTABLE CHEST 1 VIEW CLINICAL INFORMATION: Seizure . COMPARISON: 05/22/2021. TECHNIQUE: Portable frontal view of the chest was obtained. FINDINGS: The lungs are well expanded. No focal infiltrate, effusion, edema, or pneumothorax. Cardiac and mediastinal silhouettes are within normal limits for technique. No acute bony abnormality seen. Posterior right seventh healed rib fracture again noted. XR/XR chest 1V IMPRESSION: No evidence of acute disease.
--- NOTE | 2021-08-18 12:32 | ECG_ITS ---
Test Reason : sz Blood Pressure : / mmHG Vent. Rate : 091 BPM Atrial Rate : 091 BPM P-R Int : 138 ms QRS Dur : 086 ms QT Int : 348 ms P-R-T Axes : 050 031 045 degrees QTc Int : 428 ms Normal sinus rhythm Cannot rule out Anterior infarct , age undetermined , probably related lead placement Abnormal ECG When compared with ECG of 10-JUL-2021 20:48, No significant change was found Referred By: Santhosh Loyd Electronically Signed By:EUNICE BONILLA MD
--- NOTE | 2021-08-18 12:37 | ED_ITS ---
HPI - Seizure General Chief Complaint: Seizure Stated Complaint: SEIZURE POST ICTAL PER EMS Time Seen by Provider: 08/18/21 12:32 Source: patient and EMS Mode of arrival: EMS Limitations: no limitations History of Present Illness HPI Narrative: 55 years old male with past medical history significant for alcohol abuse came in for evaluation of withdrawal seizure. Patient brought in by ambulance for witnessed seizure with post ictal, patient is known alcoholic drinks every day last drink was last night claim that he did not drink today because he has no money, patient had previous history of withdrawal seizure, patient emergency department is fully awake able to provide history, feeling anxious, feeling nauseous, feels agitation, mild headache. No tactile disturbances, no auditory disturbance, no visual hallucination. No apparent injury after the seizure. Seizure History: Yes Related Data Home Medications Medication Instructions Recorded Confirmed albuterol sulfate 90 mcg/actuation 2 puff INHALATION Q4H PRN 08/18/21 08/18/21 aerosol inhaler (ProAir HFA) lisinopril 10 mg tablet 1 tab PO DAILY 08/18/21 08/18/21 loratadine 10 mg tablet 1 tab DAILY 08/18/21 08/18/21 Allergies Allergy/AdvReac Type Severity Reaction Status Date / Time Sulfa (Sulfonamide Allergy Unknown NOT Unverified 02/24/20 14:50 Antibiotics) APPLICABLE [SULFA (SULFONAMIDE ANTIBIOTICS)] Review of Systems Review of Systems: All other systems are reviewed and are negative Constitutional: Reports as per HPI and Reports no additional constitutional complaints Eyes: Reports as per HPI and Reports no additional eye complaints Reports system reviewed and no additional complaints, except as documented Cardiovascular: Reports as per HPI and Reports no additional cardiovascular complaints Respiratory: Reports as per HPI and Reports no additional respiratory complaints Gastrointestinal: Reports as per HPI and Reports no additional gastrointestinal complaints Genitourinary: Reports no additional female genitourinary complaints Musculoskeletal: Reports no additional musculoskeletal complaints Skin/Breast: Reports system reviewed and no additional complaints, except as docu Psychiatric: Reports no additional psychiatric complaints Endocrine: Reports no additional endocrine complaints Hematologic/Lymphatic: Reports no additional hematologic/lymphatic complaints Allergic/Immunologic: Reports no additional allergic/immunologic complaints Reports system reviewed and no additional complaints, except as documented and Reports Abnormal speech present ON LICENSE OF [facility] Past Medical History Medical History Abuse, drug or alcohol HTN (hypertension) Surgical History Hx of appendectomy Social History Social History Alcohol intake: current Patient Tobacco Use Status: Current everyday Tobacco user Use of substances other than those prescribed or required for medical reasons: Yes Substance Use Type: Marijuana Advance Directives: No Advance Directives Information Provided: No Physical Exam Vital Signs: Vital Signs: Last Vital Signs Temp 98.8 F 08/18/21 14:55 Pulse 87 08/18/21 14:55 Resp 16 08/18/21 14:55 BP 155/84 H 08/18/21 14:55 Pulse Ox 96 08/18/21 14:55 BMI result Body Mass Index 24.1 Vital signs have been reviewed as appeared to be correct. Blood pressure elevated. Heart rate normal. Respiration rate normal. Temperature normal. Oxygen saturation normal. Appearance: Alert. Anxious, Oriented X3 person and place and event. No acute distress. Head: Normal external exam. Normocephalic. Atraumatic. No [place] signs noted. No raccoon eyes noted Eyes: PERRLA. EOMI. Conjunctiva and sclera normal. Eyelids normal. ENT: TM's Normal. Pharynx normal. Uvula midline. Moist mucous membranes. No trismus noted. No drooling noted. No muffled voice noted. Neck: Normal inspection. Neck supple. FROM. No adenopathy. Thyroid Normal. No meningeal signs. No neck mass noted. CVS: Normal heart rate and rhythm. Heart sound normal. No murmurs noted. Pulses normal throughout. Respiratory: No respiratory distress. Painless inspiration. Breath sounds normal. No wheezes/rales/rhonchi noted. Chest nontender. No accessory muscle usage noted or decreased air movement noted. Abdomen: Soft and nontender. Bowel sounds normal in all 4 quadrants. No distention noted. No organomegaly noted. No visible injury noted. Back: No CVA tenderness. Full range of motion noted. Skin: Skin warm and dry. Normal skin color. Normal skin turgor. No rashes/lesions/lacerations noted. Extremities: No lower extremity edema. Extremities exhibit normal range of motion. Extremities nontender. Neuro: Oriented X 3. Cranial nerve exam: II-XII are grossly intact No motor deficit. No sensory deficit. Reflexes normal. Involuntary tremors, tongue fasciculation, no auditory or visual hallucination Course Course Course Narrative: Assessment and plan. 55-year-old male with history of alcohol abuse and history of alcohol withdrawal seizure with CIWA score 12, came in after having withdrawal seizure, patient now is awake and alert. Will start the patient on Ativan in phenobarb IV. Reevaluation(s) Reevaluation #1: Patient is on phenobarb drip, getting IV fluids, neuro exam is unremarkable with negative CT of the head. Time: 14:51 MDM - Seizure Medical Records Attestation: I reviewed the patient's medical records. Lab Data Attestation: I reviewed the patient's lab results. Result diagrams: 08/18/21 12:39 08/18/21 12:39 Labs: Lab Results 08/18/21 08/18/21 08/18/21 Range/Units 12:39 12:39 12:39 WBC 7.7 (4.8-10.8) X10*3/uL RBC 4.51 L (4.60-5.80) X10*6/uL Hgb 15.2 (14.0-18.0) g/dl Hct 43.8 (42.0-52.0) % MCV 97.1 (80.0-98.0) fL MCH 33.7 H (27.0-33.0) pg MCHC 34.7 (31.0-36.0) g/dl RDW 14.4 (11.0-16.0) % Plt Count 135 L D (160-400) X10*3/uL MPV 9.6 (9.4-12.4) fL Immature Gran % (Auto) 0.4 (0.0-0.4) % Neut % (Auto) 72.2 (45-73) % Lymph % (Auto) 16.4 L (20-40) % [place] % (Auto) 10.2 (2-11) % Eos % (Auto) 0.4 (0-4) % Baso % (Auto) 0.4 (0-2) % Lymph # (Auto) 1.3 (1.2-4.9) X10*3/uL [place] # (Auto) 0.8 (0.1-1.2) X10*3/uL Eos # (Auto) 0.0 (0.0-0.4) X10*3/uL Baso # (Auto) 0.0 (0.0-0.2) X10*3/uL Abs Immat Gran (auto) 0.03 (0.00-0.03) X10*3/uL Absolute Neuts (auto) 5.6 (2.0-8.3) x10*3/uL Absolute Nucleated RBC 0.000 (0.0-0.012) X10*3/uL Nucleated RBC % (auto) 0.0 (0.0-0.2) /100WBC Sodium 139 (135-145) mmol/L Potassium 3.8 (3.3-5.1) mmol/L Chloride 99 (96-108) mmol/L Carbon Dioxide 23 (22-29) mmol/L Anion Gap 21 H (12-20) BUN 5 L (9-16) mg/dL Creatinine 0.78 (0.5-1.4) mg/dL Estim Creat Clear Calc 93.0 Estimated GFR > 60 Random Glucose 141 H D (60-115) mg/dL Calcium 9.5 (8.4-10.2) mg/dL Magnesium 2.2 (1.6-2.6) mg/dL Total Bilirubin 0.7 (0.0-1.0) mg/dL Direct Bilirubin 0.3 (0.0-0.5) mg/dL AST 33 D (5-37) U/L ALT 25 (0-40) U/L Alkaline Phosphatase 80 (39-117) U/L Troponin I High Sens 6.1 (<3.5-35.0) ng/L Total Protein 7.9 (6.5-8.0) g/dL Albumin 4.3 (3.5-5.0) g/dL Lipase 32 (8-78) U/L Urine Color Urine Appearance Urine pH (5.0-8.0) Ur Specific [place] (1.005-1.025) Urine Protein (NEG-TRACE) MG/DL Urine Glucose (UA) (NEG) MG/DL Urine Ketones (NEG) MG/DL Urine Blood (NEG) Urine Nitrite (NEG) Ur Leukocyte Esterase (NEG) Urine Opiates Screen (Not Detect) Urine Fentanyl Screen (Not Detect) Ur Barbiturates Screen (Not Detect) Ur Phencyclidine Scrn (Not Detect) Ur Amphetamines Screen (Not Detect) U Benzodiazepines Scrn (Not Detect) Urine Cocaine Screen (Not Detect) U Marijuana (THC) Screen (Not Detect) Ethyl Alcohol mg/dL COVID-19 ([facility]) (Negative) COVID-19 Clin Com 08/18/21 08/18/21 08/18/21 Range/Units 12:39 15:01 15:01 WBC (4.8-10.8) X10*3/uL RBC (4.60-5.80) X10*6/uL Hgb (14.0-18.0) g/dl Hct (42.0-52.0) % MCV (80.0-98.0) fL MCH (27.0-33.0) pg MCHC (31.0-36.0) g/dl RDW (11.0-16.0) % Plt Count (160-400) X10*3/uL MPV (9.4-12.4) fL Immature Gran % (Auto) (0.0-0.4) % Neut % (Auto) (45-73) % Lymph % (Auto) (20-40) % [place] % (Auto) (2-11) % Eos % (Auto) (0-4) % Baso % (Auto) (0-2) % Lymph # (Auto) (1.2-4.9) X10*3/uL [place] # (Auto) (0.1-1.2) X10*3/uL Eos # (Auto) (0.0-0.4) X10*3/uL Baso # (Auto) (0.0-0.2) X10*3/uL Abs Immat Gran (auto) (0.00-0.03) X10*3/uL Absolute Neuts (auto) (2.0-8.3) x10*3/uL Absolute Nucleated RBC (0.0-0.012) X10*3/uL Nucleated RBC % (auto) (0.0-0.2) /100WBC Sodium (135-145) mmol/L Potassium (3.3-5.1) mmol/L Chloride (96-108) mmol/L Carbon Dioxide (22-29) mmol/L Anion Gap (12-20) BUN (9-16) mg/dL Creatinine (0.5-1.4) mg/dL Estim Creat Clear Calc Estimated GFR Random Glucose (60-115) mg/dL Calcium (8.4-10.2) mg/dL Magnesium (1.6-2.6) mg/dL Total Bilirubin (0.0-1.0) mg/dL Direct Bilirubin (0.0-0.5) mg/dL AST (5-37) U/L ALT (0-40) U/L Alkaline Phosphatase (39-117) U/L Troponin I High Sens (<3.5-35.0) ng/L Total Protein (6.5-8.0) g/dL Albumin (3.5-5.0) g/dL Lipase (8-78) U/L Urine Color YELLOW Urine Appearance CLEAR Urine pH 6.5 (5.0-8.0) Ur Specific [place] 1.010 (1.005-1.025) Urine Protein TRACE (NEG-TRACE) MG/DL Urine Glucose (UA) NEG (NEG) MG/DL Urine Ketones NEG (NEG) MG/DL Urine Blood NEG (NEG) Urine Nitrite NEG (NEG) Ur Leukocyte Esterase NEG (NEG) Urine Opiates Screen (Not Detect) Urine Fentanyl Screen (Not Detect) Ur Barbiturates Screen (Not Detect) Ur Phencyclidine Scrn (Not Detect) Ur Amphetamines Screen (Not Detect) U Benzodiazepines Scrn (Not Detect) Urine Cocaine Screen (Not Detect) U Marijuana (THC) Screen (Not Detect) Ethyl Alcohol < 10 mg/dL COVID-19 ([facility]) Negative (Negative) COVID-19 Clin Com See Note 08/18/21 Range/Units 15:01 WBC (4.8-10.8) X10*3/uL RBC (4.60-5.80) X10*6/uL Hgb (14.0-18.0) g/dl Hct (42.0-52.0) % MCV (80.0-98.0) fL MCH (27.0-33.0) pg MCHC (31.0-36.0) g/dl RDW (11.0-16.0) % Plt Count (160-400) X10*3/uL MPV (9.4-12.4) fL Immature Gran % (Auto) (0.0-0.4) % Neut % (Auto) (45-73) % Lymph % (Auto) (20-40) % [place] % (Auto) (2-11) % Eos % (Auto) (0-4) % Baso % (Auto) (0-2) % Lymph # (Auto) (1.2-4.9) X10*3/uL [place] # (Auto) (0.1-1.2) X10*3/uL Eos # (Auto) (0.0-0.4) X10*3/uL Baso # (Auto) (0.0-0.2) X10*3/uL Abs Immat Gran (auto) (0.00-0.03) X10*3/uL Absolute Neuts (auto) (2.0-8.3) x10*3/uL Absolute Nucleated RBC (0.0-0.012) X10*3/uL Nucleated RBC % (auto) (0.0-0.2) /100WBC Sodium (135-145) mmol/L Potassium (3.3-5.1) mmol/L Chloride (96-108) mmol/L Carbon Dioxide (22-29) mmol/L Anion Gap (12-20) BUN (9-16) mg/dL Creatinine (0.5-1.4) mg/dL Estim Creat Clear Calc Estimated GFR Random Glucose (60-115) mg/dL Calcium (8.4-10.2) mg/dL Magnesium (1.6-2.6) mg/dL Total Bilirubin (0.0-1.0) mg/dL Direct Bilirubin (0.0-0.5) mg/dL AST (5-37) U/L ALT (0-40) U/L Alkaline Phosphatase (39-117) U/L Troponin I High Sens (<3.5-35.0) ng/L Total Protein (6.5-8.0) g/dL Albumin (3.5-5.0) g/dL Lipase (8-78) U/L Urine Color Urine Appearance Urine pH (5.0-8.0) Ur Specific [place] (1.005-1.025) Urine Protein (NEG-TRACE) MG/DL Urine Glucose (UA) (NEG) MG/DL Urine Ketones (NEG) MG/DL Urine Blood (NEG) Urine Nitrite (NEG) Ur Leukocyte Esterase (NEG) Urine Opiates Screen Not Detected (Not Detect) Urine Fentanyl Screen Not Detected (Not Detect) Ur Barbiturates Screen Not Detected (Not Detect) Ur Phencyclidine Scrn Not Detected (Not Detect) Ur Amphetamines Screen Not Detected (Not Detect) U Benzodiazepines Scrn POSITIVE H (Not Detect) Urine Cocaine Screen Not Detected (Not Detect) U Marijuana (THC) Screen POSITIVE H (Not Detect) Ethyl Alcohol mg/dL COVID-19 ([facility]) (Negative) COVID-19 Clin Com Imaging Data CT scan - head: Attestation: I personally reviewed and interpreted this imaging study as follows: Radiologist's impression: No acute intracranial process Chest x-ray: Attestation: I personally reviewed and interpreted this imaging study as follows: Radiologist's impression: No evidence of acute disease. ECG Data Attestation: I personally reviewed and interpreted this ECG as follows: Interpretation: Normal sinus rhythm at 91 beats per minute, normal axis deviation, normal intervals, ST-T changes. Discharge Plan Discharge Clinical Impression: Generalized seizure, Alcohol withdrawal Patient Disposition: Admitted As Inpatient
[2021-08-18 12:42] LABS: MANUAL DIFF FLAG NO
[2021-08-18] MEDS: 0.9 % Sodium Chloride 1,000 ML 999 ML IV (12:42)
[2021-08-18] MEDS: LORazepam 2 MG/ML VIAL IVPUSH (12:42)
[2021-08-18 12:43] VITALS: BP 163/92; BP 180/100; PULSE 94; PULSE 99; RESP 20; TEMP 37.3; O2SAT 89; O2SAT 98; BMI 24.1
[2021-08-18 12:48] LABS: Basophils Percent Auto 0.4 % (0-2); Eosinophils Percent Auto 0.4 % (0-4); Hematocrit 43.8 % (42.0-52.0); Hemoglobin 15.2 g/dl (14.0-18.0); Imm Gran Abs Auto 0.03 X10*3/uL (0.00-0.03); Imm Gran Pct Auto 0.4 % (0.0-0.4); Lymphocytes Absolute Auto 1.3 X10*3/uL (1.2-4.9); Lymphocytes Percent Auto 16.4 % (20-40); Mean Corpuscular HGB Conc 34.7 g/dl (31.0-36.0); Mean Corpuscular Hemoglobin 33.7 pg (27.0-33.0); Mean Corpuscular Volume 97.1 fL (80.0-98.0); Mean Platelet Volume 9.6 fL (9.4-12.4); Monocytes Absolute Auto 0.8 X10*3/uL (0.1-1.2); Monocytes Percent Auto 10.2 % (2-11); Neutrophils Absolute Auto 5.6 x10*3/uL (2.0-8.3); Neutrophils Percent Auto 72.2 % (45-73); Platelet Count 135 X10*3/uL (160-400); Red Blood Count 4.51 X10*6/uL (4.60-5.80); Red Cell Distribution Width 14.4 % (11.0-16.0); White Blood Count 7.7 X10*3/uL (4.8-10.8)
[2021-08-18 13:00] LABS: Ethanol < 10 mg/dL
[2021-08-18 13:03] VITALS: O2SAT 97
[2021-08-18 13:07] LABS: Alanine Aminotransferase 25 U/L (0-40); Albumin Level 4.3 g/dL (3.5-5.0); Alkaline Phosphatase 80 U/L (39-117); Anion Gap 21 (12-20); Aspartate Amino Transferase 33 U/L (5-37); Bilirubin Direct 0.3 mg/dL (0.0-0.5); Bilirubin Total 0.7 mg/dL (0.0-1.0); Blood Urea Nitrogen 5 mg/dL (9-16); Calcium 9.5 mg/dL (8.4-10.2); Carbon Dioxide 23 mmol/L (22-29); Chloride 99 mmol/L (96-108); Estimated Glomerular Filt Rate > 60; Glucose Random 141 mg/dL (60-115); Lipase 32 U/L (8-78); Magnesium 2.2 mg/dL (1.6-2.6); Potassium 3.8 mmol/L (3.3-5.1); Sodium 139 mmol/L (135-145); Total Protein 7.9 g/dL (6.5-8.0)
[2021-08-18 13:09] LABS: Troponin-I High Sensitivity 6.1 ng/L (<3.5-35.0)
--- NOTE | 2021-08-18 13:37 | PC.NURSE ---
Pt is alert/oriented. States last ETOH yesterday morning. States ETOH x 2 years and sober x 3 years prior to that. Notable tremors to upper ext, reports nausea. States h/o seizure withdrawal. Alert/oriented x3. Sinus tach on tele 110s.
[2021-08-18] MEDS: PHENobarbitaL sodium 130 MG/ML VIAL 197 MG IM (14:51)
[2021-08-18 14:55] VITALS: BP 155/84; PULSE 87; RESP 16; TEMP 37.1; O2SAT 96
[2021-08-18 15:08] LABS: Appearance Urine CLEAR; Color Urine YELLOW; Glucose Urine UA NEG (NEG); Leukocyte Esterase Urine NEG (NEG); Nitrite Urine NEG (NEG); PH 6.5 (5.0-8.0); Urine Blood NEG (NEG); Urine Ketones NEG (NEG); Urine Protein TRACE MG/DL (NEG-TRACE)
[2021-08-18 15:21] LABS: COVID-19 Test Negative (Negative); IDNOW Serial# 16C4AD1C
[2021-08-18 15:26] LABS: Amphetamine Screen Urine Not Detected (Not Detect); Barbiturates, Urine Not Detected (Not Detect); Benzodiazepines Screen Urine POSITIVE (Not Detect); Cannabinoid Screen Urine POSITIVE (Not Detect); Cocaine Screen Urine Not Detected (Not Detect); Fentanyl, urine Not Detected (Not Detect); Opiate Screen Urine Not Detected (Not Detect); Phencyclidine Screen Urine Not Detected (Not Detect)
--- NOTE | 2021-08-18 16:25 | PM.IMHP ---
History of Present Illness Date of Service: 08/18/21 Attending physician on admission: Shanita Oro Chief Complaint: alcohol withdrawal 35-year-old male with past medical history of asthma, hypertension, allergy- Patient is known alcoholic: Drinks 4-5 beers every day-he said ( fabiana weldon beers): He ran out of money: And could not buy alcohol from last 1-2 days and subsequently was feeling anxious, tremulous and weak from 2 days and had seizure( says his friend noticed it) and brought to the hospital-initially was postictal but improving. Patient is feeling anxious, agitated, tremulous. Has mild nausea Denies any hallucinations or any head injuries. Denies any new complaint of chest pain or shortness of breath or abdominal pain or fever or chillsor vomiting Denies any cough Denies any weakness or numbness. Lab imaging reviewed: CBC feeling seems fine except mild thrombocytopenia seems chronic. BMP and LFTs are also fine. Chest x-ray and CT head negative Review of Systems Review of Systems: As above. Yes all other systems are reviewed and are negative [facility] Medical History Abuse, drug or alcohol HTN (hypertension) Pertinent family history: Father from [place], says also multiple family member have hypertension. Surgical History Hx of appendectomy Social History Alcohol intake: current Patient Tobacco Use Status: Current everyday Tobacco user Use of substances other than those prescribed or required for medical reasons: Yes Substance Use Type: Marijuana Advance Directives: No Advance Directives Information Provided: No Meds Allergies Allergy/AdvReac Type Severity Reaction Status Date / Time Sulfa (Sulfonamide Allergy Unknown NOT Unverified 02/24/20 14:50 Antibiotics) APPLICABLE [SULFA (SULFONAMIDE ANTIBIOTICS)] Active Medications: Current Medications Albuterol Sulfate (Albuterol Sulfate 90 Mcg 8 Gm Inhaler) 2 puff INHALE Q4H PRN PRN Reason: Shortness Of Breath Or Wheezing Folic Acid (Folic Acid 1 Mg Tablet) 1 mg PO DAILY [facility] Stop: 08/22/21 08:59 Lisinopril (Lisinopril 10 Mg Tablet) 10 mg PO DAILY [facility]; Protocol Loratadine (Loratadine 10 Mg Tablet) 10 mg PO DAILY [facility] Medication (No Benzodiazepines) 1 each MISCELLANE DAILY [facility] Phenobarbital (Phenobarbital 15 Mg Tablet) 45 mg PO BID [facility] Stop: 08/20/21 21:01 Phenobarbital (Phenobarbital 15 Mg Tablet) 15 mg PO BID [facility] Stop: 08/22/21 21:01 Phenobarbital (Phenobarbital 15 Mg Tablet) 15 mg PO DAILY [facility] Stop: 08/24/21 09:01 Phenobarbital Sodium (Phenobarbital Sodium 130 Mg/Ml Vial) 148 mg IM 1700,2000 [facility] Stop: 08/18/21 20:01 Sodium Chloride (0.9 % Sodium Chloride Flush 3 Ml Syringe) 3 ml IVFLUSH QSHIFT [facility] Thiamine HCl (Thiamine Hcl 100 Mg Tablet) 100 mg PO DAILY [facility] Stop: 08/22/21 08:59 Home Medications Medication Instructions Recorded Confirmed Last Taken Type albuterol sulfate 90 mcg/actuation 2 puff INHALATION Q4H PRN 08/18/21 08/18/21 08/18/21 History aerosol inhaler (ProAir HFA) lisinopril 10 mg tablet 1 tab PO DAILY 08/18/21 08/18/21 08/18/21 History loratadine 10 mg tablet 1 tab DAILY 08/18/21 08/18/21 08/18/21 History Physical Exam Vital Signs and Narrative: Vital Signs: Last Vital Signs Temp 98.8 F 08/18/21 14:55 Pulse 87 08/18/21 14:55 Resp 16 08/18/21 14:55 BP 155/84 H 08/18/21 14:55 Pulse Ox 96 08/18/21 14:55 BMI result Body Mass Index 24.1 Appearance: Alert.? Oriented X3.? Anxious and agitated Eyes: Pupils equal, round and reactive to light.? Sclera nonicteric.? ENT: Pharynx normal.? Moist mucous membranes. cvs: rrr, [id number] ,. res: clear to auscultation ,no rhonchii or wheezing abd: no rebound or guarding ,nt, bs present. ext pulses present , no cyanosis , tremulous neuro: axo3 , nonfocal, has tremors Results Labs CBC and Chem 7: 08/18/21 12:39 08/18/21 12:39 Labs: Laboratory Results - last 24 hr 08/18/21 08/18/21 08/18/21 12:39 12:39 12:39 MCV 97.1 MCH 33.7 H MCHC 34.7 RDW 14.4 Plt Count 135 L D MPV 9.6 Immature Gran % (Auto) 0.4 Neut % (Auto) 72.2 Lymph % (Auto) 16.4 L [place] % (Auto) 10.2 Eos % (Auto) 0.4 Baso % (Auto) 0.4 Lymph # (Auto) 1.3 [place] # (Auto) 0.8 Eos # (Auto) 0.0 Baso # (Auto) 0.0 Abs Immat Gran (auto) 0.03 Absolute Neuts (auto) 5.6 Absolute Nucleated RBC 0.000 Nucleated RBC % (auto) 0.0 Anion Gap 21 H Estim Creat Clear Calc 93.0 Estimated GFR > 60 Random Glucose 141 H D Calcium 9.5 Magnesium 2.2 Total Bilirubin 0.7 Direct Bilirubin 0.3 AST 33 D ALT 25 Alkaline Phosphatase 80 Total Protein 7.9 Albumin 4.3 Lipase 32 Urine Color Urine Appearance Urine pH Ur Specific [place] Urine Protein Urine Glucose (UA) Urine Ketones Urine Blood Urine Nitrite Ur Leukocyte Esterase Urine Opiates Screen Urine Fentanyl Screen Ur Barbiturates Screen Ur Phencyclidine Scrn Ur Amphetamines Screen U Benzodiazepines Scrn Urine Cocaine Screen U Marijuana (THC) Screen Ethyl Alcohol < 10 COVID-19 ([facility]) COVID-19 Clin Com 08/18/21 08/18/21 08/18/21 15:01 15:01 15:01 MCV MCH MCHC RDW Plt Count MPV Immature Gran % (Auto) Neut % (Auto) Lymph % (Auto) [place] % (Auto) Eos % (Auto) Baso % (Auto) Lymph # (Auto) [place] # (Auto) Eos # (Auto) Baso # (Auto) Abs Immat Gran (auto) Absolute Neuts (auto) Absolute Nucleated RBC Nucleated RBC % (auto) Anion Gap Estim Creat Clear Calc Estimated GFR Random Glucose Calcium Magnesium Total Bilirubin Direct Bilirubin AST ALT Alkaline Phosphatase Total Protein Albumin Lipase Urine Color YELLOW Urine Appearance CLEAR Urine pH 6.5 Ur Specific [place] 1.010 Urine Protein TRACE Urine Glucose (UA) NEG Urine Ketones NEG Urine Blood NEG Urine Nitrite NEG Ur Leukocyte Esterase NEG Urine Opiates Screen Not Detected Urine Fentanyl Screen Not Detected Ur Barbiturates Screen Not Detected Ur Phencyclidine Scrn Not Detected Ur Amphetamines Screen Not Detected U Benzodiazepines Scrn POSITIVE H Urine Cocaine Screen Not Detected U Marijuana (THC) Screen POSITIVE H Ethyl Alcohol COVID-19 ([facility]) Negative COVID-19 Clin Com See Note Imaging Radiologist's Impressions: Impressions Chest X-Ray 08/18/21 13:24 IMPRESSION: No evidence of acute disease. Head CT 08/18/21 13:55 IMPRESSION: No acute intracranial process seen. Assessment and Plan (1) Alcohol withdrawal: Status: Acute (2) Alcohol withdrawal seizure: Status: Acute (3) Thrombocytopenia: Status: Acute Plan 55-year-old male with history of alcohol use came to the hospital because of alcohol withdrawal seizure. 1. Alcohol withdrawal seizure: Patient run out of alcohol and had alcohol withdrawal seizure. Monitor on CIWA has scale ,last ciwa was of 14 as per ed. Thiamine, folic acid, neuro check, phenobarb protocol. Care team evaluation upon discharge. 2. Asthma: Seems stable Continue home medication. 3. Hypertension: Seems slightly elevated Continue lisinopril 4. Chronic thrombocytopenia: Continue to monitor 5. DVT prophylaxis: SubQ Lovenox. Patient has all call withdrawal seizure, and elevated CIWA scale as above-patient may benefit from 2 midnight stay due to severe alcohol withdrawal. Above management discussed with patient in detail length he understand and in agreement with the above plan, time spent 70 minute, patient is full code. Quality Stroke Does the patient have a stroke diagnosis?: No VTE Prior VTE?: No VTE Risk Level:: Medical - moderate - high VTE Device Contraindication: N/A - Device Ordered VTE Drug Contraindication: N/A - Med Ordered
[2021-08-18] MEDS: PHENobarbitaL sodium 130 MG/ML VIAL 148 MG IM ×2 (17:48→21:00)
[2021-08-18] MEDS: Enoxaparin Sodium 40 MG/0.4 ML SYRINGE SUBCUT (17:48)
[2021-08-18 17:52] VITALS: BP 146/79; PULSE 85; RESP 16; O2SAT 96
[2021-08-19 00:29] VITALS: BP 145/87; PULSE 80; RESP 16; O2SAT 93
[2021-08-19] MEDS: 0.9 % Sodium Chloride Flush 3 ML SYRINGE IVFLUSH ×3 (00:33→15:52)
[2021-08-19 01:15] VITALS: BP 135/80; PULSE 70; RESP 18; TEMP 36.7; O2SAT 96
[2021-08-19 07:06] LABS: Hematocrit 42.4 % (42.0-52.0); Hemoglobin 14.4 g/dl (14.0-18.0); Mean Platelet Volume 10.4 fL (9.4-12.4); Platelet Count 129 X10*3/uL (160-400); Red Blood Count 4.37 X10*6/uL (4.60-5.80); Red Cell Distribution Width 13.9 % (11.0-16.0); White Blood Count 6.2 X10*3/uL (4.8-10.8)
--- NOTE | 2021-08-19 07:59 | HO.PM.IMPN ---
Subjective Subjective Date of Service: 08/19/21 Interval History: alcohol withdrawal Review of Systems Patient still lightheadedness, tremulous, anxious Denies any chest pain or shortness of breath abdominal pain or fever or chills Physical Exam Vital Signs: Vital Signs: Last Vital Signs Temp 98.0 F 08/19/21 01:15 Pulse 70 08/19/21 01:15 Resp 18 08/19/21 01:15 BP 135/80 08/19/21 01:15 Pulse Ox 96 08/19/21 01:15 BMI result Body Mass Index 24.1 Appearance: Alert.? Oriented X3.? Eyes: Pupils equal, round and reactive to light.? Sclera nonicteric.? ENT: Pharynx normal.? Moist mucous membranes. cvs: mild tachycardic,, [id number] ,. res: clear to auscultation ,no rhonchii or wheezing abd: no rebound or guarding ,nt, bs present. ext pulses present , no cyanosis , tremulous neuro: axo3 , nonfocal,lightheadedness, tremulous, anxious Objective Data Active Medications Albuterol Sulfate (Albuterol Sulfate 90 Mcg 8 Gm Inhaler) 2 puff INHALE Q4H PRN PRN Reason: Shortness Of Breath Or Wheezing Enoxaparin Sodium (Enoxaparin Sodium 40 Mg/0.4 Ml Syringe) 40 mg SUBCUT Q24H [facility] Last Admin: 08/18/21 17:48 Dose: 40 mg Documented by: ONEL Folic Acid (Folic Acid 1 Mg Tablet) 1 mg PO DAILY [facility] Stop: 08/22/21 08:59 Lisinopril (Lisinopril 10 Mg Tablet) 10 mg PO DAILY [facility]; Protocol Loratadine (Loratadine 10 Mg Tablet) 10 mg PO DAILY [facility] Medication (No Benzodiazepines) 1 each MISCELLANE DAILY [facility] Phenobarbital (Phenobarbital 15 Mg Tablet) 45 mg PO BID [facility] Stop: 08/20/21 21:01 Phenobarbital (Phenobarbital 15 Mg Tablet) 15 mg PO BID [facility] Stop: 08/22/21 21:01 Phenobarbital (Phenobarbital 15 Mg Tablet) 15 mg PO DAILY [facility] Stop: 08/24/21 09:01 Sodium Chloride (0.9 % Sodium Chloride Flush 3 Ml Syringe) 3 ml IVFLUSH QSHIFT [facility] Last Admin: 08/19/21 00:33 Dose: 3 ml Documented by: TESSIEJorge Thiamine HCl (Thiamine Hcl 100 Mg Tablet) 100 mg PO DAILY [facility] Stop: 08/22/21 08:59 Labs CBC & Chem 7: 08/19/21 06:31 08/18/21 12:39 Labs: Laboratory Results - last 24 hr 08/18/21 08/18/21 08/18/21 12:39 12:39 12:39 MCV 97.1 MCH 33.7 H MCHC 34.7 RDW 14.4 Plt Count 135 L D MPV 9.6 Immature Gran % (Auto) 0.4 Neut % (Auto) 72.2 Lymph % (Auto) 16.4 L [place] % (Auto) 10.2 Eos % (Auto) 0.4 Baso % (Auto) 0.4 Lymph # (Auto) 1.3 [place] # (Auto) 0.8 Eos # (Auto) 0.0 Baso # (Auto) 0.0 Abs Immat Gran (auto) 0.03 Absolute Neuts (auto) 5.6 Absolute Nucleated RBC 0.000 Nucleated RBC % (auto) 0.0 Anion Gap 21 H Estim Creat Clear Calc 93.0 Estimated GFR > 60 Random Glucose 141 H D Calcium 9.5 Magnesium 2.2 Total Bilirubin 0.7 Direct Bilirubin 0.3 AST 33 D ALT 25 Alkaline Phosphatase 80 Total Protein 7.9 Albumin 4.3 Lipase 32 Urine Color Urine Appearance Urine pH Ur Specific [place] Urine Protein Urine Glucose (UA) Urine Ketones Urine Blood Urine Nitrite Ur Leukocyte Esterase Urine Opiates Screen Urine Fentanyl Screen Ur Barbiturates Screen Ur Phencyclidine Scrn Ur Amphetamines Screen U Benzodiazepines Scrn Urine Cocaine Screen U Marijuana (THC) Screen Ethyl Alcohol < 10 COVID-19 ([facility]) COVID-19 Clin Com 08/18/21 08/18/21 08/18/21 15:01 15:01 15:01 MCV MCH MCHC RDW Plt Count MPV Immature Gran % (Auto) Neut % (Auto) Lymph % (Auto) [place] % (Auto) Eos % (Auto) Baso % (Auto) Lymph # (Auto) [place] # (Auto) Eos # (Auto) Baso # (Auto) Abs Immat Gran (auto) Absolute Neuts (auto) Absolute Nucleated RBC Nucleated RBC % (auto) Anion Gap Estim Creat Clear Calc Estimated GFR Random Glucose Calcium Magnesium Total Bilirubin Direct Bilirubin AST ALT Alkaline Phosphatase Total Protein Albumin Lipase Urine Color YELLOW Urine Appearance CLEAR Urine pH 6.5 Ur Specific [place] 1.010 Urine Protein TRACE Urine Glucose (UA) NEG Urine Ketones NEG Urine Blood NEG Urine Nitrite NEG Ur Leukocyte Esterase NEG Urine Opiates Screen Not Detected Urine Fentanyl Screen Not Detected Ur Barbiturates Screen Not Detected Ur Phencyclidine Scrn Not Detected Ur Amphetamines Screen Not Detected U Benzodiazepines Scrn POSITIVE H Urine Cocaine Screen Not Detected U Marijuana (THC) Screen POSITIVE H Ethyl Alcohol COVID-19 ([facility]) Negative COVID-19 Clin Com See Note 08/19/21 06:31 MCV 97.0 MCH 33.0 MCHC 34.0 RDW 13.9 Plt Count 129 L MPV 10.4 Immature Gran % (Auto) Neut % (Auto) Lymph % (Auto) [place] % (Auto) Eos % (Auto) Baso % (Auto) Lymph # (Auto) [place] # (Auto) Eos # (Auto) Baso # (Auto) Abs Immat Gran (auto) Absolute Neuts (auto) Absolute Nucleated RBC 0.000 Nucleated RBC % (auto) 0.0 Anion Gap Estim Creat Clear Calc Estimated GFR Random Glucose Calcium Magnesium Total Bilirubin Direct Bilirubin AST ALT Alkaline Phosphatase Total Protein Albumin Lipase Urine Color Urine Appearance Urine pH Ur Specific [place] Urine Protein Urine Glucose (UA) Urine Ketones Urine Blood Urine Nitrite Ur Leukocyte Esterase Urine Opiates Screen Urine Fentanyl Screen Ur Barbiturates Screen Ur Phencyclidine Scrn Ur Amphetamines Screen U Benzodiazepines Scrn Urine Cocaine Screen U Marijuana (THC) Screen Ethyl Alcohol COVID-19 ([facility]) COVID-19 Clin Com Assessment and Plan (1) Thrombocytopenia: Status: Acute (2) Alcohol withdrawal seizure: Status: Acute (3) Alcohol withdrawal: Status: Acute Plan 55-year-old male with history of alcohol use came to the hospital because of alcohol withdrawal seizure. 1. Alcohol withdrawal seizure: Patient run out of alcohol and had? alcohol withdrawal seizure. Monitor on CIWA Thiamine, folic acid, neuro check, phenobarb protocol. Care team evaluation upon discharge. 2. Asthma: Seems stable Continue home medication. 3. Hypertension:? Seems slightly elevated sec to alcohol withdrawal but flactuating Continue lisinopril,if needed will adjust lisinopril. 4. Chronic thrombocytopenia: stable in 129 , no bleeding,Continue to monitor 5. DVT prophylaxis:? SubQ Lovenox. Patient has still has alcohol withdrawal on phenobarb protocol-need inpatient stay. Quality Stroke Does the patient have a stroke diagnosis?: No VTE Prior VTE?: No VTE Risk Level:: Medical - moderate - high VTE Device Contraindication: N/A - Device Ordered VTE Drug Contraindication: N/A - Med Ordered
[2021-08-19 08:23] VITALS: BP 137/73; PULSE 90; RESP 19; O2SAT 94
--- NOTE | 2021-08-19 08:24 | PC.NURSE ---
pt a&ox3, vss, NSR on monitor, pt reports generalized pain/stiffness post seizure, medicated per provider order.
[2021-08-19] MEDS: Loratadine 10 MG TABLET PO (08:25)
[2021-08-19] MEDS: Thiamine HCL 100 MG TABLET PO (08:25)
[2021-08-19] MEDS: PHENobarbitaL 15 MG TABLET 45 MG PO ×2 (08:25→20:30)
[2021-08-19] MEDS: Folic Acid 1 MG TABLET PO (08:25)
[2021-08-19] MEDS: lisinopriL 10 MG TABLET PO (08:25)
--- NOTE | 2021-08-19 11:13 | MHC.CM.PN ---
PT REPORTS HE LIVES WITH A FRIEND AND IS FULLY INDEPENDENT AT BASELINE PT DENIES USE OF DME OR SERVICES PCP IS MUKUL ANDERSON PT DECLINES TO COMPLETE A HCP PT REPORTS HE RECEIVED ONE DOSE OF MODERNA AND HIS SECOND DOSE IS DUE THIS MONTH CURRENT DC PLAN IS HOME VS HOME WITH REFERRALS FROM [employer] [facility]
[2021-08-19 11:17] VITALS: BP 156/91; PULSE 92; RESP 16; TEMP 37.2; O2SAT 97
--- NOTE | 2021-08-19 11:19 | PC.NURSE ---
pt getting out of bed independently, stretching, verbalizes decreased pain - tolerating pain per pt.
--- NOTE | 2021-08-19 14:18 | PC.NURSE ---
pt a&ox3, ambulating independently, states pain improving - tolerating current pain level, pt states that stretching and walking around has been improving pain.
[2021-08-19 16:00] VITALS: BP 131/77; PULSE 79; RESP 16; TEMP 37.1; O2SAT 97
--- NOTE | 2021-08-19 16:25 | PC.NURSE ---
pt requesting pain medication for generalized soreness/pain, provider notified (kaylin).
[2021-08-19] MEDS: Ibuprofen 600 MG TABLET PO (17:03)
[2021-08-19] MEDS: Enoxaparin Sodium 40 MG/0.4 ML SYRINGE SUBCUT (17:04)
--- NOTE | 2021-08-19 18:01 | PC.NURSE ---
pt a&ox3, vss, pt denies any pain at this time, will continue to monitor.
[2021-08-19 20:00] VITALS: BP 153/74; PULSE 82; RESP 16; TEMP 36.8; O2SAT 97
[2021-08-20 00:53] VITALS: BP 120/78; PULSE 71; RESP 14; TEMP 36.8; O2SAT 96
[2021-08-20 04:00] VITALS: BP 159/92; PULSE 75; RESP 18; TEMP 36.6; O2SAT 95
--- NOTE | 2021-08-20 07:36 | P.DS_ITS ---
DS: Providers Provider Date of Service: 08/20/21 Date of admission: 08/18/21 16:22 Primary care physician: Irena Jensen MD DS: Diagnosis Discharge Diagnosis (1) Thrombocytopenia: Status: Acute (2) Alcohol withdrawal seizure: Status: Acute (3) Alcohol withdrawal: Status: Acute DS: Summary Hospital Course Hospital Course: 35-year-old male with past medical history of asthma, hypertension, allergy- Patient is known alcoholic:? Drinks 4-5 beers every day-he said ( fabiana daty beers):? He ran out of money:? And could not buy alcohol from last 1-2 days and subsequently was feeling anxious, tremulous and weak from 2 days and had seizure( says his friend noticed it) and brought to the hospital-initially was postictal but improving. Patient is feeling anxious, agitated, tremulous. Has mild nausea Denies any hallucinations or any head injuries. Denies any new complaint of chest pain or shortness of breath or abdominal pain or fever or chillsor vomiting Denies any cough Denies any weakness or numbness. Lab imaging reviewed: CBC feeling seems fine except mild thrombocytopenia seems chronic. BMP and LFTs are also fine. Chest x-ray and CT head negative. Hospital course: Patient came to the hospital because of alcohol withdrawal seizure: Started on phenobarb protocol, seems improved, advised for alcohol abstinence. patient was advised to follow up with pcp before starting driving. Follow-up with outpatient PCP, patient was seen by care team-information given. Above management discussed with the patient in detail length he understand and in agreement with the above plan, time spent 50 minutes and 50% time spent on counseling. Significant findings: As above. Procedures performed: None. Treatment and response: As above. Complications: None. Time Spent with Patient Time attestation: Total time spent providing and/or coordinating discharge services: Discharge coordination time: Greater than 30 minutes Quality: Stroke Does the patient have a stroke diagnosis?: No Physical Exam Vital Signs: Vital Signs: Last Vital Signs Temp 97.9 F 08/20/21 04:00 Pulse 75 08/20/21 04:00 Resp 18 08/20/21 04:00 BP 159/92 H 08/20/21 04:00 Pulse Ox 95 08/20/21 04:00 BMI result Body Mass Index 24.1 ? Appearance: Alert.? Oriented X3.? Eyes: Pupils equal, round and reactive to light.? Sclera nonicteric.? ENT: Pharynx normal.? Moist mucous membranes. cvs: mild tachycardic, [id number]. res: clear to auscultation ,no rhonchii or wheezing abd: no rebound or guarding ,nt, bs present. ext pulses present , no cyanosis , tremulous neuro: axo3 ,?nonfocal. DS: Data Data Completed and Pending Completed studies during hospitalization [Text1]: 08/18/21 08/18/21 08/18/21 ? 12:39 12:39 12:39 MCV ?97.1 ? ? MCH ?33.7 H ? ? MCHC ?34.7 ? ? RDWB ?14.4 ? ? Plt Count ?135 L D ? ? MPV ?9.6 ? ? Immature Gran % (Auto) ?0.4 ? ? D Neut % (Auto) ?72.2 ? ? Lymph % (Auto) ?16.4 L ? ? [place] % (Auto) ?10.2 ? ? Eos % (Auto) ?0.4 ? ? Baso % (Auto) ?0.4 ? ? Lymph # (Auto) ?1.3 ? ? [place] # (Auto) ?0.8 ? ? Eos # (Auto) ?0.0 ? ? Baso # (Auto) ?0.0 ? ? Abs Immat Gran (auto) ?0.03 ? ? Absolute Neuts (auto) ?5.6 ? ? Absolute Nucleated RBC ?0.000 ? ? Nucleated RBC % (auto) ?0.0 ? ? Anion Gap ? ?21 H ? Estim Creat Clear Calc ? ?93.0 ? Estimated GFR ? ?> 60 ? Random Glucose ? ?141 H D ? Calcium ? ?9.5 ? Magnesium ? ?2.2 ? Total Bilirubin ? ?0.7 ? Direct Bilirubin ? ?0.3 ? AST ? ?33? D ? ALT ? ?25 ? Alkaline Phosphatase ? ?80 ? Total Protein ? ?7.9 ? Albumin ? ?4.3 ? Lipase ? ?32 ? Urine Color ? ? ? Urine Appearance ? ? ? Urine pH ? ? ? Ur Specific [place] ? ? ? Urine Protein ? ? ? Urine Glucose (UA) ? ? ? Urine Ketones ? ? ? Urine Blood ? ? ? Urine Nitrite ? ? ? Ur Leukocyte Esterase ? ? ? Urine Opiates Screen ? ? ? Urine Fentanyl Screen ? ? ? Ur Barbiturates Screen ? ? ? Ur Phencyclidine Scrn ? ? ? Ur Amphetamines Screen ? ? ? U Benzodiazepines Scrn ? ? ? Urine Cocaine Screen ? ? ? U Marijuana (THC) Screen ? ? ? Ethyl Alcohol ? ? ?< 10 COVID-19 ([facility]) ? ? ? COVID-19 Clin Com ? 08/18/21 08/18/21 08/18/21 ? 15:01 15:01 15:01 MCV ? ? ? MCH ? ? ? MCHC ? ? ? RDW ? ? ? D Plt Count ? ? ? MPV ? ? ? Immature Gran % (Auto) ? ? ? Neut % (Auto) ? ? ? Lymph % (Auto) ? ? ? [place] % (Auto) ? ? ? Eos % (Auto) ? ? ? Baso % (Auto) ? ? ? Lymph # (Auto) ? ? ? [place] # (Auto) ? ? ? Eos # (Auto) ? ? ? Baso # (Auto) ? ? ? Abs Immat Gran (auto) ? ? ? Absolute Neuts (auto) ? ? ? Absolute Nucleated RBC ? ? ? Nucleated RBC % (auto) ? ? ? Anion Gap ? ? ? Estim Creat Clear Calc ? ?B ? Estimated GFR ? ? ? Random Glucose ? ? ? Calcium ? ? ? Magnesium ? ? ? Total Bilirubin ? ? ? Direct Bilirubin ? ? ? AST ? ? ? ALT ? ? ? Alkaline Phosphatase ? ? ? Total Protein ? ? ? Albumin ? ? ? Lipase ? ? ? Urine Color ? ?YELLOW ? Urine Appearance ? ?CLEAR ? Urine pH ? ?6.5 ? Ur Specific [place] ? ?1.010 ? Urine Protein ? ?TRACE ? Urine Glucose (UA) ? ?NEG ? Urine Ketones ? ?NEG ? Urine Blood ? ?NEG ? Urine Nitrite ? ?NEG ? Ur Leukocyte Esterase ? ?NEG ? Urine Opiates Screen ? ? ?Not Detected Urine Fentanyl Screen ? ? ?Not Detected Ur Barbiturates Screen ? ? ?Not Detected Ur Phencyclidine Scrn ? ? ?Not Detected Ur Amphetamines Screen ? ? ?Not Detected U Benzodiazepines Scrn ? ? ?POSITIVE H Urine Cocaine Screen ? ? ?Not Detected U Marijuana (THC) Screen ? ? ?POSITIVE H Ethyl Alcohol ? ? ? COVID-19 ([facility]) ?Negative ? ? COVID-19 Clin Com ?See Note ? ? ? 08/19/21 ? 06:31 MCV ?97.0 MCH ?33.0 MCHC ?34.0 RDW ?13.9 Plt Count ?129 L MPV ?10.4 Immature Gran % (Auto) ? Neut % (Auto) ? Lymph % (Auto) ? [place] % (Auto) ? Eos % (Auto) ? Baso % (Auto) ? Lymph # (Auto) ? [place] # (Auto) ? Eos # (Auto) ? Baso # (Auto) ? Abs Immat Gran (auto) ? Absolute Neuts (auto) ? Absolute Nucleated RBC ?0.000 Nucleated RBC % (auto) ?0.0 Anion Gap ? Estim Creat Clear Calc ? Estimated GFR ? Random Glucose ? Calcium ? Magnesium ? Total Bilirubin ? Direct Bilirubin ? AST ? ALT ? Alkaline Phosphatase ? Total Protein ? Albumin ? Lipase ? Urine Color ? Urine Appearance ? Urine pH ? Ur Specific [place] ? Urine Protein ? Urine Glucose (UA) ? Urine Ketones ? Urine Blood ? Urine Nitrite ? Ur Leukocyte Esterase ? Urine Opiates Screen ? Urine Fentanyl Screen ? Ur Barbiturates Screen ? Ur Phencyclidine Scrn ? Ur Amphetamines Screen ? U Benzodiazepines Scrn ? Urine Cocaine Screen ? U Marijuana (THC) Screen ? Ethyl Alcohol ? COVID-19 ([facility]) ? COVID-19 Clin Com ? Additional Comments Additional comments: CT/CT head/brain wo con IMPRESSION: No acute intracranial process seen. XR/XR chest 1V IMPRESSION: No evidence of acute disease. Discharge Plan Discharge Patient Disposition: Home, Self-Care Discharge Diagnosis: Alcohol withdrawal seizure Referrals: Irena Jensen MD [Primary Care Provider] - 1 Week Discharge Medications: New folic acid 1 mg Tablet 1 mg PO DAILY Qty: 30 0RF thiamine mononitrate (vit B1) 100 mg Tablet 100 mg PO DAILY Qty: 30 0RF ibuprofen 600 mg Tablet 600 mg PO Q8H PRN (Reason: Pain, Mild (Pain Scale 1-3)) Qty: 4 0RF Continued albuterol sulfate [ProAir HFA] 90 mcg/actuation HFA aerosol inhaler 2 puff inhalation Q4H PRN (Reason: Shortness Of Breath Or Wheezing) 0RF loratadine 10 mg tablet 1 tab DAILY 0RF lisinopril 10 mg tablet 1 tab PO DAILY 0RF Discharge Orders: Discharge Order (Routine); Ordered 08/20/21 Ordered By: Shanita Oro Diet: advance to usual diet Activity on Discharge: As tolerated Stand Alone Forms: Patient Portal Discharge page Care Plan Goals: Patient came to the hospital because of alcohol withdrawal seizure: Started on phenobarb protocol, seems improved, advised for alcohol abstinence. Follow-up with outpatient PCP, patient was seen by care team-information given. Health Concerns: As above. Plan of Treatment: As above. Assessment: As above.
[2021-08-20 08:00] VITALS: BP 150/85; PULSE 76; RESP 16; TEMP 36.6; O2SAT 96
[2021-08-20] MEDS: 0.9 % Sodium Chloride Flush 3 ML SYRINGE IVFLUSH (08:00)
[2021-08-20] MEDS: PHENobarbitaL 15 MG TABLET 45 MG PO (08:00)
[2021-08-20] MEDS: Thiamine HCL 100 MG TABLET PO (08:01)
[2021-08-20] MEDS: Loratadine 10 MG TABLET PO (08:01)
[2021-08-20] MEDS: lisinopriL 10 MG TABLET PO (08:01)
[2021-08-20] MEDS: Folic Acid 1 MG TABLET PO (08:01)
--- NOTE | 2021-08-20 11:25 | MHC.RECOVRN ---
Met with pt in 445 after consult placed to CARE Team for alcohol use. Pt reports drinking 4-6 25 oz beers daily x 3 months, pt uses marijuana, denies other substances. Prior to admission, pt reports abruptly ceasing alcohol use which led to withdrawal seizure. Pt does report hx of other withdrawal related seizures. Pt has extensive history of AUD related tx. Pt began drinking at age 16, with increase in amount and frequency around age 21. Does report family hx ELIZA. Pts longest period in recovery was 3 years, beginning in 2011. Pt had gone to [facility], [facility], and then transitioned to [facility] [place] in [place]. During that time pt attended AA which also aided in recovery. 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 Pt owns and drives own truck. Pt lives with a trey who is supportive and has been in recovery x 1 year. Pt plans to attend AA with roommate. Pt educated regarding recovery support and resources available, declines referrals at this time. Pt provided with many resources and will reach out to t/w if needed. T/w reiterated to pt the safety concerns with abruptly stopping alcohol use, pt does not plan to continue drinking, however, will present to ED or ATS if needed. Pt provided with t/w contact information if questions or concerns arise. Discussed with pts RN as well as Sallie Montiel APRN.
--- NOTE | 2021-08-20 11:29 | MHC.CM.PN ---
pt dcd home no servceis
[2021-08-20 11:37] VITALS: BP 142/83; PULSE 75; RESP 20; TEMP 36.9; O2SAT 99
== END 2021-08-20 12:05 | disposition home or self-care (01) | DRG 775 ==
LOC: HO.ED 14:55 → HO.EDOVER 16:28 → HO.IMC 08-20 02:12
PROVIDERS: Admitting Provider Internal Medicine; Emergency Provider Emergency Medicine; PCP Internal Medicine; Visit Provider Internal Medicine
DX: F10.239 Alcohol dependence with withdrawal, unspecified (principal); D69.6 Thrombocytopenia, unspecified; R56.9 Unspecified convulsions; J45.909 Unspecified asthma, uncomplicated; I10 Essential (primary) hypertension; F17.210 Nicotine dependence, cigarettes, uncomplicated; Z20.822 Contact with and (suspected) exposure to COVID-19; Z71.6 Tobacco abuse counseling; Z88.2 Allergy status to sulfonamides; Z79.1 Long term (current) use of non-steroidal anti-inflammatories (NSAID); Z79.899 Other long term (current) drug therapy
CPT/HCPCS: 36415; 70450; 71045; 80048; 80076; 80307; 81003; 82077; 83690; 83735; 84484; 85025; 85027; 87635; 93005; 99285; J1650; J2060; J2560

== ENCOUNTER 2021-12-10 17:40 | Emergency (ER) | payer OTHER, SELFPAY | END 2021-12-10 18:34 | disposition left against medical advice (07) | PROVIDERS: Emergency Provider Emergency Medicine; PCP Internal Medicine | DX: M25.512 Pain in left shoulder (principal); M25.511 Pain in right shoulder ==

== ENCOUNTER 2022-02-04 17:51 | Emergency (ER) | payer OTHER, SELFPAY ==
[2022-02-04 18:03] VITALS: BP 138/116; PULSE 101; O2SAT 94
[2022-02-04 19:53] VITALS: BP 163/72; PULSE 86; RESP 18; TEMP 36.9; O2SAT 99; BMI 22.8
--- NOTE | 2022-02-04 19:59 | MHC.CARE ---
CARE team was contacted by Anne-Marie Ritchie. Facility sent pt to ED after he arrived to the facility seeking detox admission for alcohol use disorder. There are no available beds this evening but they will be able to accommodate him for admission in the morning. Phone number is [phone] for admissions at [facility]. Pt has a history of withdrawal seizures and was sent to the ED due to concerns that he may experience such. This information will be relayed to the ED charge nurse.
--- NOTE | 2022-02-04 20:05 | ED_ITS ---
HPI - Alcohol General Chief Complaint: ETOH/Substance Use Stated Complaint: DETOX Time Seen by Provider: 02/05/22 00:54 Source: patient Mode of arrival: ambulatory Limitations: no limitations History of Present Illness HPI narrative: 56-year-old male presents for ETOH detox. Was supposed to have a bed at [facility] this morning however there was a mixup and he was unable to get in. Patient states that if he stays at home that he might not have the courage to make it. Patient is requesting assistance to get him into detox. He drinks alcohol on daily basis usually beer, has history of withdrawal seizures, and has had many ETOH withdrawal admissions. He denies chest pain or pressure, palpitations, shortness of breath, abdominal pain, abdominal distention, suicidal ideation, homicidal ideation, and auditory visual hallucinations. MD complaint: alcohol withdrawal and alcohol dependence Last drink: Hours (ago) (4 hours prior to arrival) Amount of alcohol consumed: Large amounts of beer Chronic alcohol use: Yes Previous visits for alcohol intoxication: Yes Recent trauma: No Treatments prior to arrival: none Related Data Home Medications Medication Instructions Recorded Confirmed albuterol sulfate 90 mcg/actuation 2 puff inhalation Q4H PRN 08/18/21 08/18/21 aerosol inhaler (ProAir HFA) Shortness Of Breath Or Wheezing lisinopril 10 mg tablet 1 tab PO DAILY 08/18/21 08/18/21 loratadine 10 mg tablet 1 tab DAILY 08/18/21 08/18/21 Previous Rx's Medication Instructions Recorded folic acid 1 mg tablet 1 mg PO DAILY #30 tabs 08/20/21 ibuprofen 600 mg tablet 600 mg PO Q8H PRN Pain, Mild (Pain 08/20/21 Scale 1-3) #4 tabs thiamine mononitrate (vit B1) 100 100 mg PO DAILY #30 tabs 08/20/21 mg tablet Allergies Allergy/AdvReac Type Severity Reaction Status Date / Time Sulfa (Sulfonamide Allergy Unknown NOT Unverified 02/24/20 14:50 Antibiotics) APPLICABLE [SULFA (SULFONAMIDE ANTIBIOTICS)] Review of Systems Review of Systems: Constitutional: No Fever, No Chills ENT/Mouth: No sore throat, No Rhinorrhea Eyes: No Eye Pain, No Swelling, No Redness Cardiovascular: No Chest Pain, No SOB Respiratory: No Cough, No Sputum Gastrointestinal: No Nausea, No Vomiting, No Diarrhea, No abdominal Pain Genitourinary: No Dysuria, No Hematuria Musculoskeletal: No joint pain, No Myalgias, No Joint Swelling Skin: No Skin Lesions, No rash Neuro: No Weakness, No Numbness, No Loss of Consciousness, No Dizziness, No Headache Psych: Positive ETOH withdrawal, No Anxiety, No Depression, No SI/HI/AH/VH Heme/Lymph: No Bruising, No Bleeding,No Lymphadenopathy Endocrine: No Polyuria, No Polydipsia Yes all other systems are reviewed and are negative [facility] Past Medical History Attestation statement: The following information was validated with the patient. Source: old records reviewed Medical History Abuse, drug or alcohol HTN (hypertension) Surgical History Hx of appendectomy Social History Social History Household Members: Friend(s) Housing: House Do you presently have visiting nurse or other home services: No Alcohol intake: current Patient Tobacco Use Status: Current everyday Tobacco user Tobacco use type: Cigarette Cigarette Packs Per Day: 0.5 Cigarettes Per Day: 10.0 Substance Use Type: Marijuana Advance Directives: No Advance Directives Information Provided: No service: No Current occupational status: employed Physical Exam ED Vital Signs: Vital Signs - 24 hr 02/04/22 19:53 02/04/22 23:24 Temperature 98.4 F Pulse Rate 86 82 Respiratory Rate 18 18 Blood Pressure 163/72 H 110/70 Pulse Oximetry 99 Oxygen Delivery Method Room Air Room Air BMI result Body Mass Index 22.8 Appearance: Alert. Oriented X3. Moderate distress. Eyes: Pupils equal, round and reactive to light. Sclera nonicteric. No nystagmus. ENT: Pharynx normal. Neck: Normal inspection. Neck supple. CVS: Normal heart rate and rhythm. Pulses normal. Respiratory: No respiratory distress. Breath sounds normal. Abdomen: Soft and nontender. Skin: Skin warm and dry. Normal skin color. Normal skin turgor. Extremities: Bilateral upper extremity tremors, no asterixis. Gait well- balanced well coordinated. Neuro: No motor deficit. No sensory deficit. Cranial nerves 2-12 intact. Course Course Course Narrative: 56-year-old male presents requesting alcohol detox assistance. Last drink was this morning, patient is tremors, anxious, with elevated blood pressure. CIWA score is 12, will give 2 mg of p.o. Ativan to help with withdrawals. Patient did have a bed at a detox facility this morning, there was a mixup with transportation and was unable to clean his bed. He states that he feels to emotionally week, and needs assistance to get to detox. Plan of care is for p.o. Ativan as needed for withdrawal, and detox in the morning. Patient verbalized understanding of and agrees plan of care. Verbalized understanding of signs symptoms indicating need for emergent intervention. ETOH 234. MDM - Alcohol Differential Diagnosis Differential diagnosis: Likely alcohol dependence and alcohol withdrawal delirium Medical Records Attestation: I reviewed the patient's medical records. Lab Data Attestation: I reviewed the patient's lab results. Result diagrams: 02/04/22 20:25 02/04/22 20:25 Labs: Lab Results 02/04/22 02/04/22 Range/Units 20:25 20:25 WBC 6.5 (4.8-10.8) X10*3/uL RBC 4.25 L (4.60-5.80) X10*6/uL Hgb 14.5 (14.0-18.0) g/dl Hct 39.8 L (42.0-52.0) % MCV 93.6 (80.0-98.0) fL MCH 34.1 H (27.0-33.0) pg MCHC 36.4 H (31.0-36.0) g/dl RDW 13.2 (11.0-16.0) % Plt Count 176 D (160-400) X10*3/uL MPV 9.1 L (9.4-12.4) fL Immature Gran % (Auto) 0.3 (0.0-0.4) % Neut % (Auto) 60.6 (45-73) % Lymph % (Auto) 26.1 (20-40) % [place] % (Auto) 11.4 H (2-11) % Eos % (Auto) 0.8 (0-4) % Baso % (Auto) 0.8 (0-2) % Lymph # (Auto) 1.7 (1.2-4.9) X10*3/uL [place] # (Auto) 0.7 (0.1-1.2) X10*3/uL Eos # (Auto) 0.1 (0.0-0.4) X10*3/uL Baso # (Auto) 0.1 (0.0-0.2) X10*3/uL Abs Immat Gran (auto) 0.02 (0.00-0.03) X10*3/uL Absolute Neuts (auto) 3.9 (2.0-8.3) x10*3/uL Absolute Nucleated RBC 0.000 (0.0-0.012) X10*3/uL Nucleated RBC % (auto) 0.0 (0.0-0.2) /100WBC Sodium 136 (135-145) mmol/L Potassium 4.3 (3.3-5.1) mmol/L Chloride 95 L (96-108) mmol/L Carbon Dioxide 26 (22-29) mmol/L Anion Gap 19 (12-20) BUN 4 L (9-16) mg/dL Creatinine 0.71 (0.5-1.4) mg/dL Estim Creat Clear Calc 101.0 Estimated GFR > 60 Random Glucose 96 (60-115) mg/dL Calcium 9.3 (8.4-10.2) mg/dL Total Bilirubin 0.5 (0.0-1.0) mg/dL AST 58 H (5-37) U/L ALT 56 H (0-40) U/L Alkaline Phosphatase 67 (39-117) U/L Total Protein 7.8 (6.5-8.0) g/dL Albumin 4.7 (3.5-5.0) g/dL Ethyl Alcohol 234 mg/dL Discharge Plan Discharge Clinical Impression: Alcohol withdrawal Patient Disposition: Home, Self-Care Instructions: Alcohol Withdrawal (ED) Additional Instructions: Thank you for choosing detox. Thank you for choosing this emergency department for evaluation. Please follow-up with primary care physician as needed. Return to the emergency department for any new, concerning, or worsening symptoms. Prescriptions: No Action albuterol sulfate [ProAir HFA] 90 mcg/actuation HFA aerosol inhaler 2 puff inhalation Q4H PRN (Reason: Shortness Of Breath Or Wheezing) loratadine 10 mg tablet 1 tab DAILY lisinopril 10 mg tablet 1 tab PO DAILY folic acid 1 mg Tablet 1 mg PO DAILY Qty: 30 0RF thiamine mononitrate (vit B1) 100 mg Tablet 100 mg PO DAILY Qty: 30 0RF ibuprofen 600 mg Tablet 600 mg PO Q8H PRN (Reason: Pain, Mild (Pain Scale 1-3)) Qty: 4 0RF
[2022-02-04 20:28] LABS: MANUAL DIFF FLAG NO
[2022-02-04 20:29] LABS: Basophils Absolute Auto 0.1 X10*3/uL (0.0-0.2); Basophils Percent Auto 0.8 % (0-2); Eosinophils Absolute Auto 0.1 X10*3/uL (0.0-0.4); Eosinophils Percent Auto 0.8 % (0-4); Hematocrit 39.8 % (42.0-52.0); Hemoglobin 14.5 g/dl (14.0-18.0); Imm Gran Abs Auto 0.02 X10*3/uL (0.00-0.03); Imm Gran Pct Auto 0.3 % (0.0-0.4); Lymphocytes Absolute Auto 1.7 X10*3/uL (1.2-4.9); Lymphocytes Percent Auto 26.1 % (20-40); Mean Corpuscular HGB Conc 36.4 g/dl (31.0-36.0); Mean Corpuscular Hemoglobin 34.1 pg (27.0-33.0); Mean Corpuscular Volume 93.6 fL (80.0-98.0); Mean Platelet Volume 9.1 fL (9.4-12.4); Monocytes Absolute Auto 0.7 X10*3/uL (0.1-1.2); Monocytes Percent Auto 11.4 % (2-11); Neutrophils Absolute Auto 3.9 x10*3/uL (2.0-8.3); Neutrophils Percent Auto 60.6 % (45-73); Platelet Count 176 X10*3/uL (160-400); Red Blood Count 4.25 X10*6/uL (4.60-5.80); Red Cell Distribution Width 13.2 % (11.0-16.0); White Blood Count 6.5 X10*3/uL (4.8-10.8)
[2022-02-04 20:48] LABS: Alanine Aminotransferase 56 U/L (0-40); Albumin Level 4.7 g/dL (3.5-5.0); Alkaline Phosphatase 67 U/L (39-117); Anion Gap 19 (12-20); Aspartate Amino Transferase 58 U/L (5-37); Bilirubin Total 0.5 mg/dL (0.0-1.0); Blood Urea Nitrogen 4 mg/dL (9-16); Calcium 9.3 mg/dL (8.4-10.2); Carbon Dioxide 26 mmol/L (22-29); Chloride 95 mmol/L (96-108); Estimated Glomerular Filt Rate > 60; Ethanol 234 mg/dL; Glucose Random 96 mg/dL (60-115); Potassium 4.3 mmol/L (3.3-5.1); Sodium 136 mmol/L (135-145); Total Protein 7.8 g/dL (6.5-8.0)
[2022-02-04] MEDS: LORazepam 1 MG TABLET 2 MG PO (20:54)
[2022-02-04 23:24] VITALS: BP 110/70; PULSE 82; RESP 18
[2022-02-05] MEDS: LORazepam 1 MG TABLET PO (01:49)
[2022-02-05 02:47] VITALS: BP 149/80; PULSE 83; RESP 18; O2SAT 94
[2022-02-05 05:06] VITALS: BP 121/70; PULSE 72; RESP 18; O2SAT 95
[2022-02-05 06:13] VITALS: BP 148/73; PULSE 100; RESP 20; O2SAT 92
--- NOTE | 2022-02-05 07:19 | PC.NURSE ---
Handoff received. Pt is currently sleeping in no apparent distress. Breaths are even and unlabored. Will continue to monitor.
--- NOTE | 2022-02-05 09:06 | MHC.RECOVRN ---
Pt to be transported by [facility] for 0945 admission at [facility].
== END 2022-02-05 09:19 | disposition other institution (70) ==
PROVIDERS: Emergency Provider Internal Medicine; PCP Internal Medicine
DX: F10.230 Alcohol dependence with withdrawal, uncomplicated (principal); Y90.7 Blood alcohol level of 200-239 mg/100 ml; R25.1 Tremor, unspecified; F41.9 Anxiety disorder, unspecified; I10 Essential (primary) hypertension; F17.210 Nicotine dependence, cigarettes, uncomplicated; F12.90 Cannabis use, unspecified, uncomplicated; Z79.899 Other long term (current) drug therapy
CPT/HCPCS: 36415; 80053; 82077; 85025; 99284

== ENCOUNTER 2022-07-03 16:58 | Emergency (ER) | payer OTHER, SELFPAY ==
[2022-07-03 17:00] VITALS: BP 159/92; PULSE 98; RESP 18; TEMP 36.6; O2SAT 95; BMI 21.2
--- NOTE | 2022-07-03 17:08 | ECG_ITS ---
Test Reason : SHOLDER PAIN Blood Pressure : / mmHG Vent. Rate : 091 BPM Atrial Rate : 091 BPM P-R Int : 136 ms QRS Dur : 094 ms QT Int : 338 ms P-R-T Axes : 050 041 069 degrees QTc Int : 415 ms Normal sinus rhythm Septal infarct (cited on or before 18-AUG-2021) Abnormal ECG When compared with ECG of 18-AUG-2021 13:30, Questionable change in initial forces of Septal leads Referred By: Rosie Coreas Electronically Signed By:HOLLY HERNANDEZ
[2022-07-03 17:31] LABS: Imm Gran Abs Auto 0.02 X10*3/uL (0.00-0.03); Imm Gran Pct Auto 0.3 % (0.0-0.4); Mean Platelet Volume 9.9 fL (9.4-12.4); PLT CLUMP 1; SCAN SMEAR FLAG 1
[2022-07-03 17:33] LABS: Basophils Absolute Auto 0.1 X10*3/uL (0.0-0.2); Basophils Percent Auto 0.8 % (0-2); Eosinophils Absolute Auto 0.2 X10*3/uL (0.0-0.4); Eosinophils Percent Auto 3.7 % (0-4); Hemoglobin 14.9 g/dl (14.0-18.0); Lymphocytes Absolute Auto 1.9 X10*3/uL (1.2-4.9); Lymphocytes Percent Auto 31.1 % (20-40); Mean Corpuscular HGB Conc 37.3 g/dl (31.0-36.0); Mean Corpuscular Hemoglobin 34.3 pg (27.0-33.0); Mean Corpuscular Volume 92.2 fL (80.0-98.0); Monocytes Absolute Auto 0.6 X10*3/uL (0.1-1.2); Monocytes Percent Auto 9.8 % (2-11); Neutrophils Absolute Auto 3.3 x10*3/uL (2.0-8.3); Neutrophils Percent Auto 54.3 % (45-73); Red Blood Count 4.34 X10*6/uL (4.60-5.80); Red Cell Distribution Width 12.6 % (11.0-16.0)
[2022-07-03 17:48] LABS: Alanine Aminotransferase 77 U/L (0-40); Albumin Level 4.7 g/dL (3.5-5.0); Alkaline Phosphatase 79 U/L (39-117); Anion Gap 17 (12-20); Aspartate Amino Transferase 91 U/L (5-37); Bilirubin Total 0.6 mg/dL (0.0-1.0); Blood Urea Nitrogen 4 mg/dL (9-16); Calcium 9.7 mg/dL (8.4-10.2); Carbon Dioxide 25 mmol/L (22-29); Chloride 96 mmol/L (96-108); Creatinine Clr Calc Pharmacy 89.9; Estimated Glomerular Filt Rate > 60; Glucose Random 81 mg/dL (60-115); Potassium 4.3 mmol/L (3.3-5.1); Sodium 134 mmol/L (135-145); Total Protein 7.5 g/dL (6.5-8.0)
[2022-07-03 17:55] LABS: Troponin-I High Sensitivity 3.8 ng/L (<3.5-35.0)
[2022-07-03 17:56] LABS: MANUAL DIFF FLAG NO; Platelet Count 143 X10*3/uL (160-400)
[2022-07-03] MEDS: Ketorolac Tromethamine 30 MG/ML VIAL IM (18:27)
--- NOTE | 2022-07-03 18:29 | ED_ITS ---
HPI - Extremity Problem General Chief complaint: Extremity Problem Stated complaint: bilateral shoulder pain Time Seen by Provider: 07/03/22 17:26 Source: patient Mode of arrival: ambulatory History of Present Illness HPI Narrative: 56-year-old male with a past medical history ETOH abuse, HTN, osteoarthritis, presenting to the ED complaining of acute on chronic bilateral shoulder pain greater on the left x days. Reports associated chronic finger paresthesias. admits has been to physical therapy and orthopedics for same shoulder pain however is worsening. Denies known injury, trauma, fall, weakness, chest pain, shortness of breath, headache, vomiting MD Complaint: extremity pain Related Data Home Medications Medication Instructions Recorded Confirmed albuterol sulfate 90 mcg/actuation 2 puff inhalation Q4H PRN 08/18/21 08/18/21 aerosol inhaler (ProAir HFA) Shortness Of Breath Or Wheezing lisinopril 10 mg tablet 1 tab PO DAILY 08/18/21 08/18/21 loratadine 10 mg tablet 1 tab DAILY 08/18/21 08/18/21 Previous Rx's Medication Instructions Recorded folic acid 1 mg tablet 1 mg PO DAILY #30 tabs 08/20/21 ibuprofen 600 mg tablet 600 mg PO Q8H PRN Pain, Mild (Pain 08/20/21 Scale 1-3) #4 tabs thiamine mononitrate (vit B1) 100 100 mg PO DAILY #30 tabs 08/20/21 mg tablet acetaminophen 500 mg tablet 500 mg PO Q6H PRN fever or pain 07/03/22 (Tylenol Extra Strength) #14 tabs cyclobenzaprine 5 mg tablet 5 mg PO Q8H PRN pain (scale score 07/03/22 7-10) 5 days #14 tabs lidocaine 5 % topical patch 1 patch topical DAILY PRN pain #30 07/03/22 (Lidoderm) ea ondansetron 4 mg disintegrating 4 mg PO Q8H PRN nausea and 07/03/22 tablet vomiting #10 tabs Allergies Allergy/AdvReac Type Severity Reaction Status Date / Time Sulfa (Sulfonamide Allergy Unknown NOT Unverified 02/24/20 14:50 Antibiotics) APPLICABLE [SULFA (SULFONAMIDE ANTIBIOTICS)] Review of Systems Review of Systems: Constitutional: No Fever, No Chills ENT/Mouth: No Ear Pain, No Nasal Congestion, No Swallowing Difficulty Cardiovascular: No Chest Pain, No SOB Respiratory: No Cough, No Sputum Gastrointestinal: No Nausea, No Vomiting, No Diarrhea, No Constipation, No Abd ominal pain Genitourinary: No Dysuria, No Urinary Frequency, No Hematuria, No Urinary Incontinence/retention, No Flank Pain Musculoskeletal: + joint pain, + Myalgias, No Joint Swelling Skin: No Skin Lesions, No rash Neuro: No Weakness, No Numbness, + Paresthesias Yes all other systems are reviewed and are negative Constitutional: Constitutional: Reports as per [facility] Past Medical History Attestation statement: The following information was validated with the patient. Medical History Abuse, drug or alcohol HTN (hypertension) Surgical History Hx of appendectomy Social History Social History Household Members: Friend(s) Housing: House Do you presently have visiting nurse or other home services: No Alcohol intake: current Patient Tobacco Use Status: Current everyday Tobacco user Tobacco use type: Cigarette Cigarette Packs Per Day: 0.5 Cigarettes Per Day: 10.0 Substance Use Type: Marijuana Advance Directives: No Advance Directives Information Provided: No service: No Current occupational status: employed Physical Exam Vital Signs: Vital Signs: Last Vital Signs Temp 97.8 F 07/03/22 17:00 Pulse 98 07/03/22 17:00 Resp 18 07/03/22 17:00 BP 159/92 H 07/03/22 17:00 Pulse Ox 95 07/03/22 17:00 O2 Del Method 07/03/22 17:00 BMI result Body Mass Index 21.2 Const: General: cooperative, healthy appearing and no acute distress Orientation/consciousness: patient oriented x3 Limitations: no limitations HEENT: Head: Yes normal to inspection and Yes atraumatic Ears: hearing grossly normal bilaterally General nose exam: Normal external nose present Face and sinus: Yes normal facial exam Eyes: General: appearance normal, both eyes and all related structures EOM: EOMs intact bilaterally Neck: Neck: Yes normal visual inspection and Yes no meningeal signs Resp: Effort & Inspection: normal respiratory effort and no respiratory distress Cardio: Rate: regular rate Heart sounds: S1 normal heart sound present and S2 normal heart sound present Peripheral pulses: radial pulses present and ulnar radial pulses present Skin: Rashes: no rashes Wounds: no wounds Neuro: General: patient oriented x3, tone normal and no meningeal signs Gait exam (Neuro): Normal gait present Extrem: Other: + Bilateral shoulder tenderness greatest at AC joint. Full range of motion intact. Neurovascularly intact distally. No deformity, ecchymosis/erythema or crepitus. General: Yes normal to inspection Course Course Course Narrative: - Labs reassuring. Chronic elevated AST/ALT - troponin negative Results discussed with patient including worrisome signs and symptoms and strict return precautions, and when to return to the emergency department. They verbalized understanding and feel safe for discharge at this time. Medications Administered Discontinued Medications Generic Name Dose Route Start Last Admin Trade Name Freq PRN Reason Stop Dose Admin Ketorolac Tromethamine 30 mg 07/03/22 17:55 07/03/22 18:27 Ketorolac Tromethamine 30 Mg/Ml Vial IM 07/03/22 17:56 30 mg ONCE ONE Administration Medical Decision Making Medical Decision Making [facility] Narrative: 56-year-old male with a past medical history ETOH abuse, HTN, osteoarthritis, presenting to the ED complaining of acute on chronic bilateral shoulder pain greater on the left x days. On exam vital signs stable, NAD, nontoxic appearing, physical exam as above. Concern for acute on chronic osteoarthritic flare. Low suspicion for fracture. Concern for atypical ACS. No evidence of septic joint/arthritis. Plan: EKG, labs, pain control, re-evaluate, orthopedic follow-up Please refer to course for remaining clinical decision making, interpretation of labs/imaging results, and discussions with consultants and/or family members. Differential Diagnosis Differential Diagnoses: The differential diagnosis associated with the presentation includes as above Admission/Observation Consideration of admission/observation: Escalation of care including admission/observation considered Lab Data [facility] Lab Attestation statement: I reviewed the patient's lab results. 07/03/22 17:20 07/03/22 17:21 Labs: Lab Results 07/03/22 07/03/22 07/03/22 Range/Units 17:20 17:21 17:21 WBC 6.0 (4.8-10.8) X10*3/uL RBC 4.34 L (4.60-5.80) X10*6/uL Hgb 14.9 (14.0-18.0) g/dl Hct 40.0 L (42.0-52.0) % MCV 92.2 (80.0-98.0) fL MCH 34.3 H (27.0-33.0) pg MCHC 37.3 H (31.0-36.0) g/dl RDW 12.6 (11.0-16.0) % Plt Count 143 L (160-400) X10*3/uL MPV 9.9 (9.4-12.4) fL Immature Gran % (Auto) 0.3 (0.0-0.4) % Neut % (Auto) 54.3 (45-73) % Lymph % (Auto) 31.1 (20-40) % [place] % (Auto) 9.8 (2-11) % Eos % (Auto) 3.7 (0-4) % Baso % (Auto) 0.8 (0-2) % Lymph # (Auto) 1.9 (1.2-4.9) X10*3/uL [place] # (Auto) 0.6 (0.1-1.2) X10*3/uL Eos # (Auto) 0.2 (0.0-0.4) X10*3/uL Baso # (Auto) 0.1 (0.0-0.2) X10*3/uL Abs Immat Gran (auto) 0.02 (0.00-0.03) X10*3/uL Absolute Neuts (auto) 3.3 (2.0-8.3) x10*3/uL Absolute Nucleated RBC 0.000 (0.0-0.012) X10*3/uL Nucleated RBC % (auto) 0.0 (0.0-0.2) /100WBC Sodium 134 L (135-145) mmol/L Potassium 4.3 (3.3-5.1) mmol/L Chloride 96 (96-108) mmol/L Carbon Dioxide 25 (22-29) mmol/L Anion Gap 17 (12-20) BUN 4 L (9-16) mg/dL Creatinine 0.75 (0.5-1.4) mg/dL Estim Creat Clear Calc 89.9 Estimated GFR > 60 Random Glucose 81 (60-115) mg/dL Calcium 9.7 (8.4-10.2) mg/dL Total Bilirubin 0.6 (0.0-1.0) mg/dL AST 91 H (5-37) U/L ALT 77 H (0-40) U/L Alkaline Phosphatase 79 (39-117) U/L Troponin I High Sens 3.8 (<3.5-35.0) ng/L Total Protein 7.5 (6.5-8.0) g/dL Albumin 4.7 (3.5-5.0) g/dL Radiology Impression Discussion of test interpretation with radiology: I have reviewed the radiologist's reading. External Record Review External record reviewed: Office record, Outpatient record and Prior outpatient labs Prescription Management I considered prescription management with: Pain Medication and Antibiotic Social Determinants Patient?s care significantly limited by Social Determinants of Health including: Alcoholism and drug addiction in family Discharge Plan Discharge Clinical Impression: Chronic shoulder pain Patient Disposition: Home, Self-Care Instructions: Arthralgia (ED) Additional Instructions: Your blood work looks reassuring. Please follow-up with orthopedics. Flexeril is a muscle relaxer, take at night as it makes you drowsy, do not drive, drink alcohol, or operate machinery while taking it Naproxen as an anti-inflammatory / pain medication, take with food Lidoderm patches are numbing patches, apply to painful area In addition take Tylenol at home If symptoms persist or worsen, pain becomes unbearable, you developed urinary retention or incontinence, or weakness return to the ED Prescriptions: New acetaminophen [Tylenol Extra Strength] 500 mg tablet 500 mg PO Q6H PRN (Reason: fever or pain) Qty: 14 0RF lidocaine [Lidoderm] 5 % adhesive patch,medicated 1 patch topical DAILY MDD remove after 12 hours PRN (Reason: pain) Qty: 30 0RF Rx Instructions: leave on most painful area for up to 12 hrs ondansetron 4 mg tablet,disintegrating 4 mg PO Q8H PRN (Reason: nausea and vomiting) Qty: 10 0RF cyclobenzaprine 5 mg tablet 5 mg PO Q8H PRN (Reason: pain (scale score 7-10)) 5 Days Qty: 14 0RF No Action albuterol sulfate [ProAir HFA] 90 mcg/actuation HFA aerosol inhaler 2 puff inhalation Q4H PRN (Reason: Shortness Of Breath Or Wheezing) loratadine 10 mg tablet 1 tab DAILY lisinopril 10 mg tablet 1 tab PO DAILY folic acid 1 mg Tablet 1 mg PO DAILY Qty: 30 0RF thiamine mononitrate (vit B1) 100 mg Tablet 100 mg PO DAILY Qty: 30 0RF ibuprofen 600 mg Tablet 600 mg PO Q8H PRN (Reason: Pain, Mild (Pain Scale 1-3)) Qty: 4 0RF Referrals: [facility] [place] [facility] [Provider Group] Irena Jensen MD [Primary Care Provider] - Stand Alone Forms: Work/School Release
== END 2022-07-03 18:43 | disposition home or self-care (01) ==
PROVIDERS: Physician Assistant; Emergency Provider Emergency Medicine; PCP Internal Medicine
DX: G89.29 Other chronic pain (principal); M25.512 Pain in left shoulder; M25.511 Pain in right shoulder; I10 Essential (primary) hypertension; F17.210 Nicotine dependence, cigarettes, uncomplicated
CPT/HCPCS: 36415; 80053; 84484; 85025; 93005; 96372; 99283; 99284; J1885

== ENCOUNTER 2022-07-09 21:17 | Inpatient (IN) | payer OTHER, SELFPAY ==
--- NOTE | ~2022-07-09 | CT_ITS ---
EXAMINATION: CT HEAD WITHOUT CONTRAST CLINICAL INFORMATION: Seizure. Head strike. COMPARISON: CT head from 08/18/2021. TECHNIQUE: Contiguous axial imaging was performed from the skull base to vertex without intravenous administration of contrast. This CT examination was performed using dose optimization techniques as appropriate, variously including the following: *Automated exposure control. *Adjustment of mA and/or kV according to patient size (this includes techniques or standardized protocols for targeted exams where dose is matched to indication/reason for exam; i.e. extremities or head). *Use of iterative reconstruction technique. DLP: 752 mGy-cm FINDINGS: There is no evidence of acute intracranial hemorrhage or edematous territorial infarction. Cullen-white matter differentiation is preserved. A few foci of hypoattenuation in the periventricular and deep white matter most commonly seen with mild microangiopathy. Proportional prominence of the ventricles and sulcal spaces without evidence of obstructive hydrocephalus. The cerebellar tonsils are normally positioned. The suprasellar cistern remains widely patent. No abnormal mass effect or midline shift. No extra-axial fluid collections. Calcific atherosclerotic disease of the intracranial internal carotid arteries. No hyperdense vessel sign. No acute soft tissue or osseous abnormalities. Mild mucosal thickening of the paranasal sinuses. Moderate rightward nasal septal deviation. The mastoid air cells and middle ear cavities are clear. CT/CT head/brain wo IV con IMPRESSION: 1. No evidence of acute intracranial hemorrhage or edematous territorial infarction. 2. Mild chronic white matter changes most commonly seen with underlying microangiopathy. Moderate generalized cerebral volume loss.
--- NOTE | 2022-07-09 21:29 | ECG_ITS ---
Test Reason : SEIZURE Blood Pressure : / mmHG Vent. Rate : 101 BPM Atrial Rate : 101 BPM P-R Int : 146 ms QRS Dur : 088 ms QT Int : 338 ms P-R-T Axes : 046 043 055 degrees QTc Int : 438 ms Sinus tachycardia Otherwise normal ECG When compared with ECG of 03-JUL-2022 17:13, Criteria for Septal infarct are no longer Present Referred By: Camron Cannon Electronically Signed By:Eliseo Caro
[2022-07-09 21:36] VITALS: BP 165/83; BP 183/100; PULSE 104; PULSE 120; RESP 16; TEMP 37.1; O2SAT 94; BMI 22.0
[2022-07-09] MEDS: LORazepam 2 MG/ML VIAL IVPUSH (21:43)
[2022-07-09 21:52] LABS: Imm Gran Abs Auto 0.04 X10*3/uL (0.00-0.03); Mean Corpuscular HGB Conc 35.8 g/dl (31.0-36.0); Mean Platelet Volume 10.7 fL (9.4-12.4); Neutrophils Percent Auto 70.7 % (45-73); PLT CLUMP 1; SCAN SMEAR FLAG 1
[2022-07-09 21:54] LABS: Basophils Percent Auto 0.5 % (0-2); Eosinophils Absolute Auto 0.2 X10*3/uL (0.0-0.4); Eosinophils Percent Auto 2.3 % (0-4); Hematocrit 37.4 % (42.0-52.0); Hemoglobin 13.4 g/dl (14.0-18.0); Imm Gran Pct Auto 0.5 % (0.0-0.4); Lymphocytes Absolute Auto 1.3 X10*3/uL (1.2-4.9); Lymphocytes Percent Auto 15.1 % (20-40); Mean Corpuscular Hemoglobin 33.7 pg (27.0-33.0); Monocytes Absolute Auto 0.9 X10*3/uL (0.1-1.2); Monocytes Percent Auto 10.9 % (2-11); Neutrophils Absolute Auto 6.1 x10*3/uL (2.0-8.3); Red Blood Count 3.98 X10*6/uL (4.60-5.80); Red Cell Distribution Width 12.9 % (11.0-16.0)
[2022-07-09 21:55] LABS: MANUAL DIFF FLAG NO; Platelet Count 119 X10*3/uL (160-400); White Blood Count 8.7 X10*3/uL (4.8-10.8)
[2022-07-09 21:59] LABS: Prothrombin Time 10.9 SEC (10.0-13.1)
--- NOTE | 2022-07-09 22:05 | ED_ITS ---
HPI - Seizure General Chief Complaint: Seizure Stated Complaint: seizure Time Seen by Provider: 07/09/22 21:28 Source: patient Mode of arrival: ambulatory Limitations: no limitations History of Present Illness HPI Narrative: This is a 56-year-old male history of alcohol abuse, alcohol withdrawal seizures, HTN, thrombocytopenia presenting to the emergency department status post being found by his roommate actively seizing, patient reports he drinks 6 beers a day, he reports that he has been drinking since the age of 20 he was sober for 3 years however started drinking again his last drink was last night at approximately 20:00. Patient had a witnessed tonic clonic seizure by EMS. He was not given medications on the field. Patient reporting nausea and vomiting earlier today however no other medical complaints. He does not think he hit his head. Not on blood thinners. Upon arrival his see what is 9. Denies suicidal and homicidal ideation. Denies visual, auditory and tactile hallucinations. Denies chest pain, shortness of breath, headache, vision changes, dizziness, weakness, abdominal pain. GCS of 15. NIH stroke scale 0. Seizure History: Yes Related Data Home Medications Medication Instructions Recorded Confirmed albuterol sulfate 90 mcg/actuation 2 puff inhalation Q4H PRN 08/18/21 08/18/21 aerosol inhaler (ProAir HFA) Shortness Of Breath Or Wheezing lisinopril 10 mg tablet 1 tab PO DAILY 08/18/21 08/18/21 loratadine 10 mg tablet 1 tab DAILY 08/18/21 08/18/21 Previous Rx's Medication Instructions Recorded folic acid 1 mg tablet 1 mg PO DAILY #30 tabs 08/20/21 ibuprofen 600 mg tablet 600 mg PO Q8H PRN Pain, Mild (Pain 08/20/21 Scale 1-3) #4 tabs thiamine mononitrate (vit B1) 100 100 mg PO DAILY #30 tabs 08/20/21 mg tablet acetaminophen 500 mg tablet 500 mg PO Q6H PRN fever or pain 07/03/22 (Tylenol Extra Strength) #14 tabs cyclobenzaprine 5 mg tablet 5 mg PO Q8H PRN pain (scale score 07/03/22 7-10) 5 days #14 tabs lidocaine 5 % topical patch 1 patch topical DAILY PRN pain #30 07/03/22 (Lidoderm) ea ondansetron 4 mg disintegrating 4 mg PO Q8H PRN nausea and 07/03/22 tablet vomiting #10 tabs Allergies Allergy/AdvReac Type Severity Reaction Status Date / Time Sulfa (Sulfonamide Allergy Unknown NOT Verified 07/09/22 21:36 Antibiotics) APPLICABLE [SULFA (SULFONAMIDE ANTIBIOTICS)] Review of Systems Review of Systems: Constitutional : No Weight loss, No Fever, No Chills, No Fatigue, No Malaise ENT/Mouth : No sore throat, No Rhinorrhea Eyes: No Eye Pain, No Swelling, No Redness Cardiovascular : No Chest Pain, No SOB, No Dyspnea on Exertion, No Orthopnea, No Edema, No Palpitations Respiratory : No Cough, No Sputum, No Wheezing Gastrointestinal : + Nausea, + Vomiting, No Diarrhea, No Constipation, No abdominal Pain, No Hematochezia, No Melena Genitourinary : No Dysuria, No Urinary Frequency, No Hematuria, Musculoskeletal : No joint pain, No Myalgias, No Joint Swelling Skin : No Skin Lesions, No rash Neuro : No Weakness, No Numbness, No Dizziness, No Headache Psych : No Anxiety/Panic, No Depression All other systems reviewed and are negative Yes all other systems are reviewed and are negative [facility] Past Medical History Attestation statement: The following information was validated with the patient. Source: old records reviewed and nursing notes reviewed Medical History Abuse, drug or alcohol HTN (hypertension) Surgical History Hx of appendectomy Social History Social History Household Members: Friend(s) Housing: House Do you presently have visiting nurse or other home services: No Alcohol intake: current Patient Tobacco Use Status: Current everyday Tobacco user Tobacco use type: Cigarette Cigarette Packs Per Day: 0.5 Cigarettes Per Day: 10.0 Substance Use Type: Marijuana Advance Directives: No Advance Directives Information Provided: Yes service: No Current occupational status: employed Physical Exam Vital Signs: Vital Signs: Last Vital Signs Temp 98.7 F 07/09/22 21:36 Pulse 104 H 07/09/22 21:36 Resp 16 07/09/22 21:36 BP 165/83 H 07/09/22 21:36 Pulse Ox 94 07/09/22 21:36 O2 Del Method 07/09/22 21:36 BMI result Body Mass Index 22.0 Vital signs stable. Appearance: Alert.? Oriented X3.? No acute distress.? Slight diaphoresis noted on exam. Head: Normocephalic, atraumatic, no step-offs or deformities Eyes: Pupils equal, round and reactive to light.? ENT: Pharynx normal.? Tongue fasciculations noted. Neck: Normal inspection.? Neck supple.? CVS: Rapid regular rhythm likely sinus tachycardia.? Pulses normal.? Respiratory: No respiratory distress.? Breath sounds normal.? Abdomen: Soft and nontender.? Skin: Skin warm and dry.? Normal skin color.? Normal skin turgor.? Extremities: No lower extremity edema.? No calf ttp. 5/5 strength to bilateral upper and lower extremities bilateral upper extremities with resting tremor. Back: No midline tenderness, no C-spine tenderness, full range of motion, no CVA tenderness bilaterally Neuro: Oriented X 3.? No motor deficit.? No sensory deficit. CN 2-12 intact Course Reevaluation(s) Reevaluation #1: CBC appears to be around patient's baseline, no acute findings. It does however have a slight normocytic anemia. Chemistry with low-sodium likely secondary to dehydration, patient will receive IV fluids, patient also noted to have an elevated anion gap of 24 likely secondary to ethanol. Transaminases chronically elevated likely secondary to alcohol abuse. Ethanol level. Coags with no acute finding. CT of the head in COVID pending. Time: 22:25 Reevaluation #2: Head CT with no evidence of acute intracranial hemorrhage or edematous territorial infarction. 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 At this time patient to be admitted to the hospital for further evaluation and treatment for alcohol withdrawal seizures. Time: 23:46 Medications Administered Generic Name Dose Route Start Last Admin Trade Name Freq PRN Reason Stop Dose Admin Enoxaparin Sodium 40 mg 07/09/22 23:00 07/09/22 23:34 Enoxaparin Sodium 40 Mg/0.4 Ml Syringe SUBCUT 40 mg Q24H AUTUMN Administration Thiamine HCl 100 mg/ Sodium 101 mls @ 202 mls/hr 07/09/22 22:50 07/09/22 23:34 Chloride IV 202 mls/hr DAILY AUTUMN Administration Sodium Chloride 3 ml 07/10/22 00:00 07/09/22 23:34 0.9 % Sodium Chloride Flush 3 Ml Syringe IVFLUSH 3 ml QSHIFT AUTUMN Administration Discontinued Medications Generic Name Dose Route Start Last Admin Trade Name Zach PRN Reason Stop Dose Admin Sodium Chloride 1,000 mls @ 999 mls/hr 07/09/22 22:15 07/09/22 23:34 Ns IV 07/09/22 23:15 999 mls/hr .Q1H1M AUTUMN Administration Lorazepam 2 mg 07/09/22 21:29 07/09/22 21:43 Lorazepam 2 Mg/Ml Vial IVPUSH 07/09/22 21:30 2 mg ONCE ONE Administration Phenobarbital Sodium 360 mg 07/09/22 22:00 07/09/22 22:47 Phenobarbital Sodium 130 Mg/Ml Im Once IM 07/09/22 22:01 360 mg ONCE ONE Administration Medical Decision Making Medical Decision Making [facility] Narrative: 2208 56-year-old male presents status post alcohol withdrawal seizure, last drink last night a PM. Recurrent daily drinker of 6 beers a night. Reports nausea vomiting. CIWA 9 on arrival Physical examination patient is slightly diaphoretic, rapid regular rhythm on e xam, breath sounds clear. Resting tremors to bilateral upper extremities. Patient is noted to have fasciculations of the tongue. Patient is noted to be hypertensive and tachycardic raising suspicion for autonomic dysfunction. However, at this time patient mentating well. NIH stroke scale 0. GCS negative. Likely alcohol w/ drawl seizure. Unlikely ICH, stroke, posterior stroke, electrolyte abnormalities, infection Plan at this time basic labs, will give 2 of IV Ativan, will obtain ethanol level, drug screen, plan is to initiate phenobarbital protocol at 12, patient will be admitted to the hospitalist team. Differential Diagnosis Differential Diagnoses: The differential diagnosis associated with the presentation includes Likely alcohol w/ drawl seizure. Unlikely ICH, stroke, posterior stroke, electrolyte abnormalities, infection Admission/Observation Consideration of admission/observation: Escalation of care including admission/observation considered Will likely need admission Lab Data [facility] Lab Attestation statement: I reviewed the patient's lab results. 07/09/22 21:43 07/09/22 21:43 Labs: Lab Results 01/07/09/22 07/09/22 Range/Units 21:43 21:43 21:43 WBC 8.7 (4.8-10.8) X10*3/uL RBC 3.98 L (4.60-5.80) X10*6/uL Hgb 13.4 L (14.0-18.0) g/dl Hct 37.4 L (42.0-52.0) % MCV 94.0 (80.0-98.0) fL MCH 33.7 H (27.0-33.0) pg MCHC 35.8 (31.0-36.0) g/dl RDW 12.9 (11.0-16.0) % Plt Count 119 L (160-400) X10*3/uL MPV 10.7 (9.4-12.4) fL Immature Gran % (Auto) 0.5 H (0.0-0.4) % Neut % (Auto) 70.7 (45-73) % Lymph % (Auto) 15.1 L (20-40) % [place] % (Auto) 10.9 (2-11) % Eos % (Auto) 2.3 (0-4) % Baso % (Auto) 0.5 (0-2) % Lymph # (Auto) 1.3 (1.2-4.9) X10*3/uL [place] # (Auto) 0.9 (0.1-1.2) X10*3/uL Eos # (Auto) 0.2 (0.0-0.4) X10*3/uL Baso # (Auto) 0.0 (0.0-0.2) X10*3/uL Abs Immat Gran (auto) 0.04 H (0.00-0.03) X10*3/uL Absolute Neuts (auto) 6.1 (2.0-8.3) x10*3/uL Absolute Nucleated RBC 0.000 (0.0-0.012) X10*3/uL Nucleated RBC % (auto) 0.0 (0.0-0.2) /100WBC PT 10.9 (10.0-13.1) SEC INR 1.0 (0.9-1.1) Sodium 129 L (135-145) mmol/L Potassium 3.6 (3.3-5.1) mmol/L Chloride 93 L (96-108) mmol/L Carbon Dioxide 16 L (22-29) mmol/L Anion Gap 24 H (12-20) BUN 4 L (9-16) mg/dL Creatinine 0.78 (0.5-1.4) mg/dL Estim Creat Clear Calc 89.7 Estimated GFR > 60 Random Glucose 122 H (60-115) mg/dL Osmolality (281-305) mosm/kg Calcium 9.6 (8.4-10.2) mg/dL Magnesium 2.3 (1.6-2.6) mg/dL Total Bilirubin 0.9 (0.0-1.0) mg/dL AST 87 H (5-37) U/L ALT 90 H (0-40) U/L Alkaline Phosphatase 84 (39-117) U/L Total Creatine Kinase 159 (38-174) U/L Total Protein 7.3 (6.5-8.0) g/dL Albumin 4.6 (3.5-5.0) g/dL Ethyl Alcohol < 10 mg/dL COVID-19 ([facility]) (Negative) COVID-19 Clin Com 07/09/22 07/09/22 Range/Units 21:43 22:46 WBC (4.8-10.8) X10*3/uL RBC (4.60-5.80) X10*6/uL Hgb (14.0-18.0) g/dl Hct (42.0-52.0) % MCV (80.0-98.0) fL MCH (27.0-33.0) pg MCHC (31.0-36.0) g/dl RDW (11.0-16.0) % Plt Count (160-400) X10*3/uL MPV (9.4-12.4) fL Immature Gran % (Auto) (0.0-0.4) % Neut % (Auto) (45-73) % Lymph % (Auto) (20-40) % [place] % (Auto) (2-11) % Eos % (Auto) (0-4) % Baso % (Auto) (0-2) % Lymph # (Auto) (1.2-4.9) X10*3/uL [place] # (Auto) (0.1-1.2) X10*3/uL Eos # (Auto) (0.0-0.4) X10*3/uL Baso # (Auto) (0.0-0.2) X10*3/uL Abs Immat Gran (auto) (0.00-0.03) X10*3/uL Absolute Neuts (auto) (2.0-8.3) x10*3/uL Absolute Nucleated RBC (0.0-0.012) X10*3/uL Nucleated RBC % (auto) (0.0-0.2) /100WBC PT (10.0-13.1) SEC INR (0.9-1.1) Sodium (135-145) mmol/L Potassium (3.3-5.1) mmol/L Chloride (96-108) mmol/L Carbon Dioxide (22-29) mmol/L Anion Gap (12-20) BUN (9-16) mg/dL Creatinine (0.5-1.4) mg/dL Estim Creat Clear Calc Estimated GFR Random Glucose (60-115) mg/dL Osmolality 267 L (281-305) mosm/kg Calcium (8.4-10.2) mg/dL Magnesium (1.6-2.6) mg/dL Total Bilirubin (0.0-1.0) mg/dL AST (5-37) U/L ALT (0-40) U/L Alkaline Phosphatase (39-117) U/L Total Creatine Kinase (38-174) U/L Total Protein (6.5-8.0) g/dL Albumin (3.5-5.0) g/dL Ethyl Alcohol mg/dL COVID-19 ([facility]) Negative (Negative) COVID-19 Clin Com See Note Independent Interpretation I performed an independent interpretation of an: CT Scan Radiology Impression Discussion of test interpretation with radiology: I have reviewed the radiologist's reading. Core Measures AMI core measures followed: Yes Measure exclusions: not indicated Critical Care Time Critical Care Time Critical Care Time: No Discharge Plan Discharge Clinical Impression: Alcohol withdrawal seizure, Thrombocytopenia Patient Disposition: Still a Patient Prescriptions: No Action albuterol sulfate [ProAir HFA] 90 mcg/actuation HFA aerosol inhaler 2 puff inhalation Q4H PRN (Reason: Shortness Of Breath Or Wheezing) loratadine 10 mg tablet 1 tab DAILY lisinopril 10 mg tablet 1 tab PO DAILY folic acid 1 mg Tablet 1 mg PO DAILY Qty: 30 0RF thiamine mononitrate (vit B1) 100 mg Tablet 100 mg PO DAILY Qty: 30 0RF ibuprofen 600 mg Tablet 600 mg PO Q8H PRN (Reason: Pain, Mild (Pain Scale 1-3)) Qty: 4 0RF acetaminophen [Tylenol Extra Strength] 500 mg tablet 500 mg PO Q6H PRN (Reason: fever or pain) Qty: 14 0RF lidocaine [Lidoderm] 5 % adhesive patch,medicated 1 patch topical DAILY MDD remove after 12 hours PRN (Reason: pain) Qty: 30 0RF Rx Instructions: leave on most painful area for up to 12 hrs ondansetron 4 mg tablet,disintegrating 4 mg PO Q8H PRN (Reason: nausea and vomiting) Qty: 10 0RF cyclobenzaprine 5 mg tablet 5 mg PO Q8H PRN (Reason: pain (scale score 7-10)) 5 Days Qty: 14 0RF
[2022-07-09 22:15] LABS: Alanine Aminotransferase 90 U/L (0-40); Albumin Level 4.6 g/dL (3.5-5.0); Alkaline Phosphatase 84 U/L (39-117); Anion Gap 24 (12-20); Aspartate Amino Transferase 87 U/L (5-37); Bilirubin Total 0.9 mg/dL (0.0-1.0); Blood Urea Nitrogen 4 mg/dL (9-16); Calcium 9.6 mg/dL (8.4-10.2); Carbon Dioxide 16 mmol/L (22-29); Chloride 93 mmol/L (96-108); Creatinine Clr Calc Pharmacy 89.7; Estimated Glomerular Filt Rate > 60; Ethanol < 10 mg/dL; Glucose Random 122 mg/dL (60-115); Magnesium 2.3 mg/dL (1.6-2.6); Potassium 3.6 mmol/L (3.3-5.1); Sodium 129 mmol/L (135-145); Total Protein 7.3 g/dL (6.5-8.0)
[2022-07-09] MEDS: PHENobarbitaL sodium 130 MG/ML IM ONCE 360 MG IM (22:47)
--- NOTE | 2022-07-09 22:50 | P.HPHOSP_ITS ---
History of Present Illness Date of Service: 07/09/22 Chief Complaint: Seizure disorder This is of 56-year-old male with pertinent history of alcohol use disorder with history of alcohol withdrawal seizures, essential hypertension who was brought to the emergency department for evaluation of seizures. As per EMS, patient was actively seizing. Patient's roommate noticed a tonic clonic seizure and called EMS. Patient reportedly has more than 30 year alcohol history and was drinking beer throughout the day. His last drink was 20:00. Patient also was sweating and had episodes of nausea and nonbloody emesis later in the day. Patient also complaining of hand tremors. No suicidal or homicidal ideation. No visual, tactile or auditory hallucination. He denies fever, chills, chest discomfort, palpitations, shortness of breath, abdominal pain, changes in urinary or bowel habits In the emergency department, CIWA 9 Review of Systems Cardiovascular: Cardiovascular: Reports no additional cardiovascular complaints Respiratory: Respiratory: Reports no additional respiratory complaints Gastrointestinal: Gastrointestinal: Reports nausea and Reports vomiting Genitourinary: Genitourinary: Reports no additional male genitourinary complaints Neurologic: Reports seizure-like activity [facility] Medical History Abuse, drug or alcohol HTN (hypertension) Pertinent family history: Does not know off pertinent family history Surgical History Hx of appendectomy Social History Household Members: Friend(s) Housing: House Do you presently have visiting nurse or other home services: No Alcohol intake: current Patient Tobacco Use Status: Current everyday Tobacco user Tobacco use type: Cigarette Cigarette Packs Per Day: 0.5 Cigarettes Per Day: 10.0 Substance Use Type: Marijuana Advance Directives: No Advance Directives Information Provided: Yes service: No Current occupational status: employed Meds Allergies Allergy/AdvReac Type Severity Reaction Status Date / Time Sulfa (Sulfonamide Allergy Unknown NOT Verified 07/09/22 21:36 Antibiotics) APPLICABLE [SULFA (SULFONAMIDE ANTIBIOTICS)] Active Medications: Current Medications Sodium Chloride (Ns) 1,000 mls @ 999 mls/hr IV .Q1H1M [facility] Stop: 07/09/22 23:15 Sodium Chloride (Ns) 1,000 mls @ 999 mls/hr IV .Q1H1M [facility] Stop: 07/09/22 23:30 Thiamine HCl 100 mg/ Sodium (Chloride) 101 mls @ 202 mls/hr IV DAILY [facility] Pharmacy Consult (Consult Rx Perform Med Rec) 1 each MISCELLANE ONCE PRN PRN Reason: Consult order Pharmacy Consult (Consult Rx Etoh Phenob Im/Po) 1 each MISCELLANE ONCE PRN; Protocol PRN Reason: Consult order Phenobarbital (Phenobarbital 15 Mg Tablet) 45 mg PO BID [facility] Stop: 07/11/22 21:01 Phenobarbital (Phenobarbital 30 Mg Tablet) 30 mg PO BID [facility] Stop: 07/13/22 21:01 Phenobarbital (Phenobarbital 15 Mg Tablet) 15 mg PO DAILY [facility] Stop: 07/15/22 09:01 Phenobarbital Sodium (Phenobarbital Sodium 130 Mg/Ml Vial Im Q3hx2) 270 mg IM Q3H [facility] Stop: 07/10/22 05:01 Home Medications Medication Instructions Recorded Confirmed Last Taken Type albuterol sulfate 90 mcg/actuation 2 puff inhalation Q4H PRN 08/18/21 08/18/21 08/18/21 History aerosol inhaler (ProAir HFA) Shortness Of Breath Or Wheezing lisinopril 10 mg tablet 1 tab PO DAILY 08/18/21 08/18/21 08/18/21 History loratadine 10 mg tablet 1 tab DAILY 08/18/21 08/18/21 08/18/21 History Physical Exam Vital Signs and Narrative: Vital Signs: Last Vital Signs Temp 98.7 F 07/09/22 21:36 Pulse 104 H 07/09/22 21:36 Resp 16 07/09/22 21:36 BP 165/83 H 07/09/22 21:36 Pulse Ox 94 07/09/22 21:36 O2 Del Method 07/09/22 21:36 BMI result Body Mass Index 22.0 Middle-aged male lying in bed in no distress Neck supple, no JVD Tachycardic with regular rhythm, S1-S2 heard Regular breath sounds bilaterally, no wheezing or crackles appreciated Abdomen soft nontender, no guarding, no rigidity Patient is awake, alert and oriented to place, self, hand tremors seen Psych: Drowsy No pedal edema Results Labs 07/09/22 21:43 07/09/22 21:43 Labs: Laboratory Results - last 24 hr 07/09/22 07/09/22 07/09/22 21:43 21:43 21:43 MCV 94.0 MCH 33.7 H MCHC 35.8 RDW 12.9 Plt Count 119 L MPV 10.7 Immature Gran % (Auto) 0.5 H Neut % (Auto) 70.7 Lymph % (Auto) 15.1 L [place] % (Auto) 10.9 Eos % (Auto) 2.3 Baso % (Auto) 0.5 Lymph # (Auto) 1.3 [place] # (Auto) 0.9 Eos # (Auto) 0.2 Baso # (Auto) 0.0 Abs Immat Gran (auto) 0.04 H Absolute Neuts (auto) 6.1 Absolute Nucleated RBC 0.000 Nucleated RBC % (auto) 0.0 PT 10.9 INR 1.0 Anion Gap 24 H Estim Creat Clear Calc 89.7 Estimated GFR > 60 Random Glucose 122 H Calcium 9.6 Magnesium 2.3 Total Bilirubin 0.9 AST 87 H ALT 90 H Alkaline Phosphatase 84 Total Creatine Kinase 159 Total Protein 7.3 Albumin 4.6 Ethyl Alcohol < 10 Assessment and Plan (1) Alcohol withdrawal seizure: Status: Acute (2) Alcohol withdrawal: Status: Acute (3) Thrombocytopenia: Status: Acute Plan This is of 56-year-old male with pertinent history of alcohol use disorder with history of alcohol withdrawal seizures, essential hypertension who was brought to the emergency department for evaluation of seizures. #. Alcohol withdrawal seizure #. Alcohol use disorder -will admit patient and monitor CIWA. Initiated on phenobarb protocol. Hold off on antiepileptics. CARE team and addiction team consulted. Initiated thiamine and folic acid #. Thrombocytopenia in the setting of alcohol use disorder #. Hyponatremia, likely hypovolemic. Monitor with fluid resuscitation. Studies pending #. Essential hypertension: On lisinopril DVT prophylaxis: Lovenox 40 mg daily Full code Regular diet Admit as inpatient and will require two night minimum hospital stay for close monitoring of alcohol withdrawal Time Spent With Patient Time: Total time managing care of this patient today ____ minutes. Quality Stroke Does the patient have a stroke diagnosis?: No VTE Prior VTE?: No VTE Risk Level:: Medical - moderate - high VTE Device Contraindication: Treatment Not Indicated VTE Drug Contraindication: N/A - Med Ordered
[2022-07-09 23:13] LABS: COVID-19 Test Negative (Negative); IDNOW Serial# 6674DD1D
[2022-07-09 23:30] LABS: Osmolality, Serum 267 mosm/kg (281-305)
[2022-07-09] MEDS: Enoxaparin Sodium 40 MG/0.4 ML SYRINGE SUBCUT (23:34)
[2022-07-09] MEDS: Thiamine HCL 100 MG in 0.9 % Sodium Chloride 100 ML 202 MG IV (23:34)
[2022-07-09] MEDS: 0.9 % Sodium Chloride 1,000 ML 999 ML IV (23:34)
[2022-07-09] MEDS: 0.9 % Sodium Chloride Flush 3 ML SYRINGE IVFLUSH (23:34)
[2022-07-10 00:25] VITALS: BP 158/86; PULSE 89; RESP 17; TEMP 36.6; O2SAT 95
[2022-07-10 00:28] LABS: Ammonia 45 umol/L (13-55)
[2022-07-10 00:43] LABS: Lactic Acid 0.7 mmol/L (0.5-2.0)
[2022-07-10] MEDS: 0.9 % Sodium Chloride 1,000 ML 999 ML IV (01:52)
[2022-07-10] MEDS: PHENobarbitaL sodium 130 MG/ML VIAL IM Q3Hx2 270 MG IM ×2 (02:26→05:23)
[2022-07-10 04:35] LABS: Appearance Urine Clear; Color Urine Yellow; Glucose Urine UA Negative (Negative); Leukocyte Esterase Urine Negative (Negative); Nitrite Urine Negative (Negative); Specific Gravity - Urine <= 1.005 (1.005-1.025); Urine Blood Negative (Negative); Urine Ketones Negative (Negative); Urine Protein Trace mg/dL (Neg-Trace)
--- NOTE | 2022-07-10 04:45 | PC.NURSE ---
Med rec completed at this time.
[2022-07-10 04:47] LABS: Amphetamine Screen Urine Not Detected (Not Detect); Barbiturates, Urine POSITIVE (Not Detect); Benzodiazepines Screen Urine Not Detected (Not Detect); Cannabinoid Screen Urine POSITIVE (Not Detect); Cocaine Screen Urine Not Detected (Not Detect); Fentanyl, urine Not Detected (Not Detect); Opiate Screen Urine Not Detected (Not Detect); Phencyclidine Screen Urine Not Detected (Not Detect)
[2022-07-10 05:00] LABS: Osmolality Urine 156 mosm/kg (373-1093)
[2022-07-10 06:55] VITALS: BP 123/66; PULSE 71; RESP 16; O2SAT 95
[2022-07-10 07:00] LABS: MANUAL DIFF FLAG NO
--- NOTE | 2022-07-10 07:23 | PHA.MEDREC ---
Pharmacy Consult ? Medication Reconciliation Pharmacy has completed the medication reconciliation. Reviewed med rec done by nursing
[2022-07-10 07:27] LABS: Anion Gap 15 (12-20); Blood Urea Nitrogen 5 mg/dL (9-16); Calcium 8.7 mg/dL (8.4-10.2); Carbon Dioxide 22 mmol/L (22-29); Chloride 105 mmol/L (96-108); Creatinine Clr Calc Pharmacy 111.1; Estimated Glomerular Filt Rate > 60; Glucose Random 81 mg/dL (60-115); Potassium 3.9 mmol/L (3.3-5.1); Sodium 138 mmol/L (135-145)
[2022-07-10] MEDS: Folic Acid 1 MG TABLET PO (08:21)
[2022-07-10] MEDS: 0.9 % Sodium Chloride Flush 3 ML SYRINGE IVFLUSH (08:21)
--- NOTE | 2022-07-10 08:26 | MHC.CM.PN ---
PT REPORTS HE LIVES WITH A ROOMMATE AND IS INDEPENDENT WITH CARE HE DENIES USE OF DME OR SERVICES HE DECLINES TO COMPLETE A HCP HE REPORTS HE IS COVID VAX, NOT BOOSTED PCP: MUKUL ANDERSON DCP: HOME NO SERVICES FRIEND TO TRANSPORT
[2022-07-10 08:30] LABS: Basophils Percent Auto 0.4 % (0-2); Eosinophils Absolute Auto 0.1 X10*3/uL (0.0-0.4); Hematocrit 35.8 % (42.0-52.0); Hemoglobin 12.7 g/dl (14.0-18.0); Imm Gran Abs Auto 0.03 X10*3/uL (0.00-0.03); Imm Gran Pct Auto 0.4 % (0.0-0.4); Lymphocytes Percent Auto 14.1 % (20-40); Mean Corpuscular HGB Conc 35.5 g/dl (31.0-36.0); Mean Corpuscular Hemoglobin 33.2 pg (27.0-33.0); Mean Corpuscular Volume 93.5 fL (80.0-98.0); Mean Platelet Volume 11.1 fL (9.4-12.4); Monocytes Absolute Auto 0.7 X10*3/uL (0.1-1.2); Monocytes Percent Auto 10.2 % (2-11); Neutrophils Absolute Auto 5.1 x10*3/uL (2.0-8.3); Neutrophils Percent Auto 72.9 % (45-73); Platelet Count 114 X10*3/uL (160-400); Red Blood Count 3.83 X10*6/uL (4.60-5.80)
[2022-07-10] MEDS: Thiamine HCL 100 MG in 0.9 % Sodium Chloride 100 ML 202 MG IV (09:03)
[2022-07-10] MEDS: PHENobarbitaL 15 MG TABLET 45 MG PO (09:04)
--- NOTE | 2022-07-10 12:30 | PC.NURSE ---
Patient reporting he would like to leave immediately. Hospitalist paged, awaiting response.
--- NOTE | 2022-07-10 12:40 | PC.NURSE ---
Provider now in at bedside
--- NOTE | 2022-07-10 12:53 | PC.NURSE ---
Patient leaving against medical advice with friend. Doctor in at beside at time of departure.
--- NOTE | 2022-07-10 13:04 | PM.DS ---
DS: Providers Provider Date of Service: 07/10/22 Date of admission: 07/09/22 22:49 Primary care physician: Irena Jensen MD Consults: 07/09/22 22:48 Addiction Medicine Routine Consulting Provider: Solo Covering Reason for consultation: alcohol use disorder Consult to Care Team Routine Comment: Reason for consultation: alcohol use disorder DS: Diagnosis Discharge Diagnosis (1) Alcohol withdrawal seizure: Status: Acute (2) Alcohol withdrawal: Status: Acute (3) Thrombocytopenia: Status: Acute DS: Summary Hospital Course Hospital Course: Date of Service: 07/09/22 Chief Complaint: Seizure disorder This is of 56-year-old male with pertinent history of alcohol use disorder with history of alcohol withdrawal seizures, essential hypertension who was brought to the emergency department for evaluation of seizures.? As per EMS, patient was actively seizing.? Patient's roommate noticed a tonic clonic seizure and called EMS.? Patient reportedly has more than 30 year alcohol history and was drinking beer throughout the day.? His last drink was 20:00.? Patient also was sweating and had episodes of nausea and nonbloody emesis later in the day.? Patient also complaining of hand tremors.? No suicidal or homicidal ideation.? No visual, tactile or auditory hallucination.? He denies fever, chills, chest discomfort, palpitations, shortness of breath, abdominal pain, changes in urinary or bowel habits In the emergency department, [facility] 9 Hospital course 56-year-old male with pertinent history of alcohol use disorder with history of alcohol withdrawal seizures, essential hypertension was brought to the emergency department for evaluation of seizures, patient was placed on phenobarb protocol, as well as IV thiamine, folic acid, patient started feeling better and decided to leave hospital against medical advice, patient has been informed about risk of recurrent seizures, patient admitted of drinking Mostly over the weekend and in last 2 days only had few beers likely causing withdrawal seizures at present patient is walking with a steady gait although is shaky , patient friend Yony Agosto [phone] Willing to take care of him 30/12 and if patient noted to have any recurrent seizure he is taking responsibility for bringing him back to [facility], patient declined to stay for care team evaluation, patient advised to follow-up with primary care physician and to strongly abstain from alcohol. # Thrombocytopenia in the setting of alcohol use disorder chronic and stable. #.Hyponatremia, likely beer potomania resolved with fluid restriction #.Essential hypertension: Continue lisinopril. Time Spent with Patient Time attestation: Total time managing care of this patient today ____ minutes. Discharge coordination time: Greater than 30 minutes Quality: Safe Use of Opioids Does Pt have an Active Cancer Diagnosis on the Problem List?: No Quality: Stroke Does the patient have a stroke diagnosis?: No Physical Exam Vital Signs: Vital Signs: Last Vital Signs Temp 97.8 F 07/10/22 00:25 Pulse 71 07/10/22 06:55 Resp 16 07/10/22 06:55 BP 123/66 07/10/22 06:55 Pulse Ox 95 07/10/22 06:55 O2 Del Method 07/10/22 06:55 BMI result Body Mass Index 22.0 Const: Other: Gen: Awake alert in no distress Neck supple, no JVD Tachycardic with regular rhythm, S1-S2 heard Regular breath sounds bilaterally, no wheezing or crackles appreciated Abdomen soft nontender, no guarding, no rigidity Patient oriented to place, person, self, hand tremors , steady gait Psych:? Appropriate affect No pedal edema DS: Data Data Completed and Pending Completed studies during hospitalization [Text1]: Procedures Detoxification Services for Substance Abuse Treatment (08/18/21) Labs on day of discharge: Laboratory Results - last 24 hr 07/09/22 07/09/22 07/09/22 21:43 21:43 21:43 WBC 8.7 RBC 3.98 L Hgb 13.4 L Hct 37.4 L MCV 94.0 MCH 33.7 H MCHC 35.8 RDW 12.9 Plt Count 119 L MPV 10.7 Immature Gran % (Auto) 0.5 H Neut % (Auto) 70.7 Lymph % (Auto) 15.1 L [place] % (Auto) 10.9 Eos % (Auto) 2.3 Baso % (Auto) 0.5 Lymph # (Auto) 1.3 [place] # (Auto) 0.9 Eos # (Auto) 0.2 Baso # (Auto) 0.0 Abs Immat Gran (auto) 0.04 H Absolute Neuts (auto) 6.1 Absolute Nucleated RBC 0.000 Nucleated RBC % (auto) 0.0 PT 10.9 INR 1.0 Sodium 129 L Potassium 3.6 Chloride 93 L Carbon Dioxide 16 L Anion Gap 24 H BUN 4 L Creatinine 0.78 Estim Creat Clear Calc 89.7 Estimated GFR > 60 Random Glucose 122 H Osmolality Lactic Acid Calcium 9.6 Magnesium 2.3 Total Bilirubin 0.9 AST 87 H ALT 90 H Alkaline Phosphatase 84 Ammonia Total Creatine Kinase 159 Total Protein 7.3 Albumin 4.6 Urine Color Urine Appearance Urine pH Ur Specific [place] Urine Protein Urine Glucose (UA) Urine Ketones Urine Blood Urine Nitrite Ur Leukocyte Esterase Urine Osmolality Ur Random Sodium Urine Opiates Screen Urine Fentanyl Screen Ur Barbiturates Screen Ur Phencyclidine Scrn Ur Amphetamines Screen U Benzodiazepines Scrn Urine Cocaine Screen U Marijuana (THC) Screen Ethyl Alcohol < 10 COVID-19 ([facility]) COVID-19 [employer] 07/09/22 07/09/22 07/09/22 21:43 22:46 22:46 WBC RBC Hgb Hct MCV MCH MCHC RDW Plt Count MPV Immature Gran % (Auto) Neut % (Auto) Lymph % (Auto) [place] % (Auto) Eos % (Auto) Baso % (Auto) Lymph # (Auto) [place] # (Auto) Eos # (Auto) Baso # (Auto) Abs Immat Gran (auto) Absolute Neuts (auto) Absolute Nucleated RBC Nucleated RBC % (auto) PT INR Sodium Potassium Chloride Carbon Dioxide Anion Gap BUN Creatinine Estim Creat Clear Calc Estimated GFR Random Glucose Osmolality 267 L Lactic Acid Calcium Magnesium Total Bilirubin AST ALT Alkaline Phosphatase Ammonia 45 Total Creatine Kinase Total Protein Albumin Urine Color Urine Appearance Urine pH Ur Specific [place] Urine Protein Urine Glucose (UA) Urine Ketones Urine Blood Urine Nitrite Ur Leukocyte Esterase Urine Osmolality Ur Random Sodium Urine Opiates Screen Urine Fentanyl Screen Ur Barbiturates Screen Ur Phencyclidine Scrn Ur Amphetamines Screen U Benzodiazepines Scrn Urine Cocaine Screen U Marijuana (THC) Screen Ethyl Alcohol COVID-19 ([facility]) Negative COVID-19 [employer] See Note 07/10/22 07/10/22 07/10/22 00:24 04:14 04:14 WBC RBC Hgb Hct MCV MCH MCHC RDW Plt Count MPV Immature Gran % (Auto) Neut % (Auto) Lymph % (Auto) [place] % (Auto) Eos % (Auto) Baso % (Auto) Lymph # (Auto) [place] # (Auto) Eos # (Auto) Baso # (Auto) Abs Immat Gran (auto) Absolute Neuts (auto) Absolute Nucleated RBC Nucleated RBC % (auto) PT INR Sodium Potassium Chloride Carbon Dioxide Anion Gap BUN Creatinine Estim Creat Clear Calc Estimated GFR Random Glucose Osmolality Lactic Acid 0.7 Calcium Magnesium Total Bilirubin AST ALT Alkaline Phosphatase Ammonia Total Creatine Kinase Total Protein Albumin Urine Color Urine Appearance Urine pH Ur Specific [place] Urine Protein Urine Glucose (UA) Urine Ketones Urine Blood Urine Nitrite Ur Leukocyte Esterase Urine Osmolality Ur Random Sodium 33.0 Urine Opiates Screen Not Detected Urine Fentanyl Screen Not Detected Ur Barbiturates Screen POSITIVE H Ur Phencyclidine Scrn Not Detected Ur Amphetamines Screen Not Detected U Benzodiazepines Scrn Not Detected Urine Cocaine Screen Not Detected U Marijuana (THC) Screen POSITIVE H Ethyl Alcohol COVID-19 ([facility]) COVID-19 [employer] 07/10/22 07/10/22 07/10/22 04:15 04:15 06:52 WBC 7.0 RBC 3.83 L Hgb 12.7 L Hct 35.8 L MCV 93.5 MCH 33.2 H MCHC 35.5 RDW 13.0 Plt Count 114 L MPV 11.1 Immature Gran % (Auto) 0.4 Neut % (Auto) 72.9 Lymph % (Auto) 14.1 L [place] % (Auto) 10.2 Eos % (Auto) 2.0 Baso % (Auto) 0.4 Lymph # (Auto) 1.0 L [place] # (Auto) 0.7 Eos # (Auto) 0.1 Baso # (Auto) 0.0 Abs Immat Gran (auto) 0.03 Absolute Neuts (auto) 5.1 Absolute Nucleated RBC 0.000 Nucleated RBC % (auto) 0.0 PT INR Sodium Potassium Chloride Carbon Dioxide Anion Gap BUN Creatinine Estim Creat Clear Calc Estimated GFR Random Glucose Osmolality Lactic Acid Calcium Magnesium Total Bilirubin AST ALT Alkaline Phosphatase Ammonia Total Creatine Kinase Total Protein Albumin Urine Color Yellow Urine Appearance Clear Urine pH 7.0 Ur Specific [place] <= 1.005 Urine Protein Trace Urine Glucose (UA) Negative Urine Ketones Negative Urine Blood Negative Urine Nitrite Negative Ur Leukocyte Esterase Negative Urine Osmolality 156 L Ur Random Sodium Urine Opiates Screen Urine Fentanyl Screen Ur Barbiturates Screen Ur Phencyclidine Scrn Ur Amphetamines Screen U Benzodiazepines Scrn Urine Cocaine Screen U Marijuana (THC) Screen Ethyl Alcohol COVID-19 ([facility]) COVID-19 [employer] 07/10/22 06:52 WBC RBC Hgb Hct MCV MCH MCHC RDW Plt Count MPV Immature Gran % (Auto) Neut % (Auto) Lymph % (Auto) [place] % (Auto) Eos % (Auto) Baso % (Auto) Lymph # (Auto) [place] # (Auto) Eos # (Auto) Baso # (Auto) Abs Immat Gran (auto) Absolute Neuts (auto) Absolute Nucleated RBC Nucleated RBC % (auto) PT INR Sodium 138 Potassium 3.9 Chloride 105 Carbon Dioxide 22 Anion Gap 15 BUN 5 L Creatinine 0.63 Estim Creat Clear Calc 111.1 Estimated GFR > 60 Random Glucose 81 Osmolality Lactic Acid Calcium 8.7 D Magnesium Total Bilirubin AST ALT Alkaline Phosphatase Ammonia Total Creatine Kinase Total Protein Albumin Urine Color Urine Appearance Urine pH Ur Specific [place] Urine Protein Urine Glucose (UA) Urine Ketones Urine Blood Urine Nitrite Ur Leukocyte Esterase Urine Osmolality Ur Random Sodium Urine Opiates Screen Urine Fentanyl Screen Ur Barbiturates Screen Ur Phencyclidine Scrn Ur Amphetamines Screen U Benzodiazepines Scrn Urine Cocaine Screen U Marijuana (THC) Screen Ethyl Alcohol COVID-19 ([facility]) COVID-19 Clin Com Discharge Plan Discharge Patient Disposition: Left Against Medical Advice Discharge Diagnosis: Alcohol withdrawal seizure Alcohol abuse disorder its [place] Referrals: Irena Jensen MD [Primary Care Provider] - 1 Week Discharge Medications: Continued albuterol sulfate [ProAir HFA] 90 mcg/actuation HFA aerosol inhaler 2 puff inhalation Q4H PRN (Reason: Shortness Of Breath Or Wheezing) loratadine 10 mg tablet 1 tab DAILY lisinopril 10 mg tablet 1 tab PO DAILY folic acid 1 mg Tablet 1 mg PO DAILY Qty: 30 0RF thiamine mononitrate (vit B1) 100 mg Tablet 100 mg PO DAILY Qty: 30 0RF ibuprofen 600 mg Tablet 600 mg PO Q8H PRN (Reason: Pain, Mild (Pain Scale 1-3)) Qty: 4 0RF lidocaine [Lidoderm] 5 % adhesive patch,medicated 1 patch topical DAILY MDD remove after 12 hours PRN (Reason: pain) Qty: 30 0RF Rx Instructions: leave on most painful area for up to 12 hrs ondansetron 4 mg tablet,disintegrating 4 mg PO Q8H PRN (Reason: nausea and vomiting) Qty: 10 0RF cyclobenzaprine 5 mg tablet 5 mg PO Q8H PRN (Reason: pain (scale score 7-10)) 5 Days Qty: 14 0RF Discontinued acetaminophen [Tylenol Extra Strength] 500 mg tablet 500 mg PO Q6H PRN (Reason: fever or pain) Qty: 14 0RF Discharge Orders: Discharge Order (Routine); Ordered 07/10/22 Ordered By: Adrianne Patel Diet: Advance to usual diet Activity on Discharge: As tolerated Care Plan Goals: Strongly advised to abstain from alcohol informed patient about risk of seizures but patient is adamant to leave patient friend who is also his roommate stays with him for 24 hours and to the responsibility of bringing him back with any recurrent seizures, patient chose not to wait for care team evaluation Health Concerns: Take all home medications as prescribed Plan of Treatment: Outpatient follow-up with primary care physician call for appointment. Assessment: As above
--- NOTE | 2022-07-10 13:11 | MHC.CM.PN ---
Patient is leaving AMA.
== END 2022-07-10 14:00 | disposition left against medical advice (07) | DRG 426 ==
LOC: HO.ED 22:26 → HO.EDOVER 23:59
PROVIDERS: Physician Assistant; Admitting Provider Student in an Organized Health Care Education/Training Program; Emergency Provider Internal Medicine; PCP Internal Medicine; Visit Provider Hospitalist
DX: E87.1 Hypo-osmolality and hyponatremia (principal); D69.6 Thrombocytopenia, unspecified; R56.9 Unspecified convulsions; F10.239 Alcohol dependence with withdrawal, unspecified; F17.210 Nicotine dependence, cigarettes, uncomplicated; I10 Essential (primary) hypertension; Z71.6 Tobacco abuse counseling; Z20.822 Contact with and (suspected) exposure to COVID-19; Z88.2 Allergy status to sulfonamides; Z79.899 Other long term (current) drug therapy
CPT/HCPCS: 36415; 70450; 80048; 80053; 80307; 81003; 82077; 82140; 82550; 83605; 83735; 83930; 83935; 84300; 85025; 85610; 87635; 93005; 99285; J1650; J2060; J2560; J3411

== ENCOUNTER 2023-12-16 09:17 | Emergency (ER) | payer BC, SELFPAY ==
[2023-12-16 09:40] VITALS: BP 146/114; PULSE 99; RESP 16; TEMP 37; O2SAT 95; BMI 23.3
--- NOTE | 2023-12-16 11:06 | ED_ITS ---
History of Present Illness General Chief Complaint: Epistaxis Stated Complaint: nose bleed Time Seen by Provider: 12/16/23 10:53 Source: patient Mode of arrival: ambulatory Limitations: no limitations History of Present Illness HPI Narrative: 58 year old male with a PHMx of thrombocytopenia, HTN, alcohol abuse, and asthma presents to the ER due to skin of right nostril bleeding intermittently. States that there was a bright red zit that he believes he itched in the middle of the night and it started to profusely bleed. Same situation happened 3 weeks ago, patient cauterized it with cigarette and it then stopped bleeding.Denies headache, vision changes, abdominal pain, fever, or chills. Reports taking OTC ibuprofen everyday for back pain, no other blood thinners. Notes that he drinks 6 pack beer daily. Had 2 beers this morning. Related Data Home Medications ?Medication ?Instructions ?Recorded ?Confirmed albuterol sulfate 90 mcg/actuation 2 puff inhalation Q4H PRN 08/18/21 07/10/22 aerosol inhaler (ProAir HFA) Shortness Of Breath Or Wheezing lisinopril 10 mg tablet 1 tab PO DAILY 08/18/21 07/10/22 loratadine 10 mg tablet 1 tab DAILY 08/18/21 07/10/22 Previous Rx's ?Medication ?Instructions ?Recorded folic acid 1 mg tablet 1 mg PO DAILY #30 tabs 08/20/21 ibuprofen 600 mg tablet 600 mg PO Q8H PRN Pain, Mild (Pain 08/20/21 Scale 1-3) #4 tabs thiamine mononitrate (vit B1) 100 100 mg PO DAILY #30 tabs 08/20/21 mg tablet acetaminophen 500 mg tablet 500 mg PO Q6H PRN fever or pain 07/03/22 (Tylenol Extra Strength) #14 tabs cyclobenzaprine 5 mg tablet 5 mg PO Q8H PRN pain (scale score 07/03/22 7-10) 5 days #14 tabs lidocaine 5 % topical patch 1 patch topical DAILY PRN pain #30 07/03/22 (Lidoderm) ea ondansetron 4 mg disintegrating 4 mg PO Q8H PRN nausea and 07/03/22 tablet vomiting #10 tabs Allergies Allergy/AdvReac Type Severity Reaction Status Date / Time Sulfa (Sulfonamide Allergy Unknown NOT Verified 12/16/23 09:43 Antibiotics) APPLICABLE [SULFA (SULFONAMIDE ANTIBIOTICS)] Review of Systems Review of Systems: Yes all other systems are reviewed and are negative Constitutional: Constitutional: Reports as per HPI Eyes: Eyes: Reports as per HPI ENT: Reports as per HPI Cardiovascular: Cardiovascular: Reports as per HPI Respiratory: Respiratory: Reports as per HPI Gastrointestinal: Gastrointestinal: Reports as per HPI Genitourinary: Genitourinary: Reports as per HPI Musculoskeletal: Musculoskeletal: Reports as per HPI Integumentary/Breasts: Skin/Breast: Reports as per HPI Neurologic: Reports as per HPI Psychiatric: Psychiatric: Reports as per HPI Endocrine: Endocrine: Reports as per HPI Hematologic/Lymphatic: Hematologic/Lymphatic: Reports as per HPI Allergic/Immunologic: Allergic/Immunologic: Reports as per HPI [facility] Past Medical History Attestation statement: The following information was validated with the patient. Source: old records reviewed and nursing notes reviewed Medical History Thrombocytopenia HTN (hypertension) Abuse, drug or alcohol Surgical History Hx of appendectomy Social History Social History Household Members: Friend(s) Housing: House Do you presently have visiting nurse or other home services: No Alcohol intake: current Patient Tobacco Use Status: Current everyday Tobacco user Tobacco use type: Cigarette Cigarette Packs Per Day: 0.5 Cigarettes Per Day: 10.0 Substance Use Type: Marijuana Advance Directives: No Advance Directives Information Provided: No service: No Current occupational status: employed Physical Exam Vital Signs: Vital Signs: Last Vital Signs Temp 98.6 F 12/16/23 11:31 Pulse 99 12/16/23 11:31 Resp 16 12/16/23 11:31 BP 146/114 H 12/16/23 11:31 Pulse Ox 95 12/16/23 11:31 O2 Del Method Room Air 12/16/23 11:31 BMI result Body Mass Index 23.3 vss Appearance: Alert.? Oriented X3.? No acute distress.? Head: Normocephalic, atraumatic, no step-offs or deformities + skin on right nares lateral aspect appears to have dry crusted blood over very small area < 1 cm abrasion Eyes: Pupils equal, round and reactive to light.? Neck: Normal inspection.? Neck supple.? CVS: Normal heart rate and rhythm.? Pulses normal.? Respiratory: No respiratory distress.? Breath sounds normal.? Abdomen: Soft and nontender.? Skin: Skin warm and dry.? Normal skin color.? Normal skin turgor.? Extremities: No lower extremity edema.? No calf ttp. 5/5 strength to bilateral upper and lower extremities Neuro: Oriented X 3.? No motor deficit.? No sensory deficit. CN 2-12 intact Const: General: cooperative, comfortable and no acute distress Orientation/consciousness: patient oriented x3 HEENT: Head: Yes normal to inspection Ears: hearing grossly normal bilaterally General nose exam: Normal external nose present, Normal nares present, No nasal polyps present, Normal septum present, No nasal discharge present and Abnormal external nose present Face and sinus: Yes normal facial exam Chest: Chest palpation & inspection: normal inspection of the chest Resp: Effort & Inspection: normal respiratory effort Auscultation: clear to auscultation bilaterally Cardio: Rate: regular rate Rhythm: regular rhythm Neuro: General: patient oriented x3 Course Reevaluation(s) Reevaluation #1: Not bleeding. Will give Dermatology follow-up. Educated patient on diagnosis and treatment plan, answered all question, patient verbalizes understanding. At this time patient will be discharged home, advised to return with new or worsening symptoms. Educated on worrisome signs and symptoms and when to r eturn. At this time I feel comfortable discharge home. Time: 12:01 Medical Decision Making Medical Decision Making MDM Narrative: 58 year old male presents w/ bleeding skin to nose PE skin on right nares lateral aspect appears to have dry crusted blood over very small area < 1 cm abrasion Hx and pe concerning for abrasion vs pimple . No signs of necrosis no signs of active bleeding or acute anemia. Low suspicion for malignancy Plan- educate on ibuprofen use. Follow-up with dermatology. Nothing to be done acutely about this as there is no bleeding. Differential Diagnosis Differential Diagnoses: The differential diagnosis associated with the presentation includes Hx and pe concerning for abrasion vs pimple . No signs of necrosis no signs of active bleeding or acute anemia. Low suspicion for malignancy Admission/Observation Consideration of admission/observation: Escalation of care including admission/observation considered Unlikely External Record Review External record reviewed: Inpatient record, Office record, Outpatient record, Prior outpatient labs, Prior outpatient radiology, Primary care record and Outside ED record Critical Care Time Critical Care Time Critical Care Time: No Discharge Plan Discharge Clinical Impression: Abrasion of nose, Skin pimple Patient Disposition: Home, Self-Care Instructions: Abrasion (ED) Additional Instructions: Take your medications as prescribed. If you were prescribed antibiotics today, it is important that you take your medication to their entirety, do not skip any doses, do not finish them early. Follow-up with your primary care provider this week. Return to the emergency department with new or worsening symptoms. Such as fe vers, chills, chest pain, shortness of breath, nausea, vomiting, dizziness, headache, vision changes, lethargy In case of emergency call 911 [facility] [address] [place] [address] Prescriptions: No Action albuterol sulfate [ProAir HFA] 90 mcg/actuation HFA aerosol inhaler 2 puff inhalation Q4H PRN (Reason: Shortness Of Breath Or Wheezing) loratadine 10 mg tablet 1 tab DAILY lisinopril 10 mg tablet 1 tab PO DAILY folic acid 1 mg Tablet 1 mg PO DAILY Qty: 30 0RF thiamine mononitrate (vit B1) 100 mg Tablet 100 mg PO DAILY Qty: 30 0RF ibuprofen 600 mg Tablet 600 mg PO Q8H PRN (Reason: Pain, Mild (Pain Scale 1-3)) Qty: 4 0RF acetaminophen [Tylenol Extra Strength] 500 mg tablet 500 mg PO Q6H PRN (Reason: fever or pain) Qty: 14 0RF lidocaine [Lidoderm] 5 % adhesive patch,medicated 1 patch topical DAILY MDD remove after 12 hours PRN (Reason: pain) Qty: 30 0RF Rx Instructions: leave on most painful area for up to 12 hrs ondansetron 4 mg tablet,disintegrating 4 mg PO Q8H PRN (Reason: nausea and vomiting) Qty: 10 0RF cyclobenzaprine 5 mg tablet 5 mg PO Q8H PRN (Reason: pain (scale score 7-10)) 5 Days Qty: 14 0RF Referrals: Irena Jensen MD [Primary Care Provider] - 2 days Stand Alone Forms: Work/School Release Interventions: ED Discharge Assessment Last Done: 12/16/23 11:31 Discharge Date/Time: 12/16/23 11:32 Print Language: Palestinian
[2023-12-16 11:31] VITALS: BP 146/114; PULSE 99; RESP 16; TEMP 37; O2SAT 95
== END 2023-12-16 11:32 | disposition home or self-care (01) ==
PROVIDERS: Emergency Provider Emergency Medicine; PCP Internal Medicine
DX: R23.8 Other skin changes (principal); S00.31XA Abrasion of nose, initial encounter; X58.XXXA Exposure to other specified factors, initial encounter; Y93.9 Activity, unspecified; Y92.9 Unspecified place or not applicable; Y99.9 Unspecified external cause status; I10 Essential (primary) hypertension
CPT/HCPCS: 99282

== ENCOUNTER 2024-08-25 11:48 | Outpatient (REF) | payer BC, SELFPAY ==
[2024-08-25 12:54] LABS: Hematocrit 38.1 % (42.0-52.0); Mean Corpuscular HGB Conc 34.1 g/dl (31.0-36.0); Mean Corpuscular Hemoglobin 28.6 pg (27.0-33.0); Mean Corpuscular Volume 83.9 fL (80.0-98.0); Mean Platelet Volume 10.3 fL (9.4-12.4); Red Blood Count 4.54 X10*6/uL (4.60-5.80); Red Cell Distribution Width 17.8 % (11.0-16.0); White Blood Count 6.8 X10*3/uL (4.8-10.8)
[2024-08-25 12:55] LABS: Platelet Count 94 X10*3/uL (160-400)
[2024-08-25 13:27] LABS: Alanine Aminotransferase 94 U/L (0-40); Albumin Level 3.9 g/dL (3.5-5.0); Alkaline Phosphatase 113 U/L (39-117); Anion Gap 15 (12-20); Aspartate Amino Transferase 164 U/L (5-37); Bilirubin Direct 0.2 mg/dL (0.0-0.5); Bilirubin Total 0.4 mg/dL (0.0-1.0); Blood Urea Nitrogen 4 mg/dL (9-16); Calcium 8.8 mg/dL (8.4-10.2); Carbon Dioxide 26 mmol/L (22-29); Chloride 99 mmol/L (96-108); Estimated Glomerular Filt Rate > 60; Glucose Random 91 mg/dL (60-115); Potassium 3.9 mmol/L (3.3-5.1); Sodium 136 mmol/L (135-145); Total Protein 8.2 g/dL (6.5-8.0)
[2024-08-25 14:03] LABS: Folate 10.6 ng/mL (> or = 4.0); Vitamin B12 592 pg/mL (200-900)
== END 2024-08-25 11:49 | disposition home or self-care (01) ==
LOC: HO.LAB 11:48
PROVIDERS: Visit Provider Psychiatry & Neurology Neurology
DX: G40.909 Epilepsy, unspecified, not intractable, without status epilepticus (principal)
CPT/HCPCS: 36415; 80048; 80076; 82607; 82746; 85027